=== PATIENT | male | born 1980 | race Caucasian/White ===

== ENCOUNTER 2020-09-24 17:29 | Inpatient (IN) ==
[2020-09-24] MEDS ORDERED: DILAUDID INJ IVP ONE (18:28)
[2020-09-24] MEDS ORDERED: ZOFRAN INJ 4 MG VIAL IVP ONE (18:28)
[2020-09-24] MEDS ORDERED: ZOSYN VIAL 3.375 GRAMS 3.375 G in NS 100 ML IV + SPIKE MINIBAG* 100 ML IV ONE (18:29)
--- NOTE | 2020-09-24 18:32 | DR.ABDMALE ---
HPI Time seen Time Seen by Provider: 09/24/20 18:28 PCP Primary Care Physician: PAULA Complaint Chief Complaint Doctors Comments: 2-3 days LLQ abd pain w fever- pain better w lying still. s/p lap lidia 3 wk ago. Chief Complaint:: PT C/O LLQ PAIN. PT WENT AND SEEN HIS PCP AND WAS SENT TO HAVE A ABD/PELVIX CT SCAN. THE SCAN SHOWED PT HAS A ABD ABCESS AND WAS TOLD TO COME OVER TO THE ED TO BE EVALUATED FOR ADMISSION. DR MADSEN WAS ALSO CALLED AND TOLD PATIENT TO COME TO ED. COVID-19 Coronavirus risk:travel/contact w/high risk person: No Has patient experienced Coronavirus symptoms: No Mode of arrival Mode of Arrival: Ambulatory Timing Onset of Chief Complaint: 09/14/20 PMH PMH Past Medical History: Yes Past Medical History: Depression and Hypertension Past Surgical History: Yes Surgical History: Cholecystectomy and Ortho Surgery Past Surgical History Comment: KNEE SURGERY Family History History of Family Medical Conditions: No Social History Does any household member use tobacco: No Alcohol Use: Occasionally Do you use any recreational Drugs:: No Lives With: Family Lives Where: Home Travel Risk Coronavirus risk:travel/contact w/high risk person: No Has patient experienced Coronavirus symptoms: No Infectious screening In the last 2 months have you had wt loss of >10#?: NO Have you had fever, night sweats or hemotysis?: No Have you traveled outside the country in the last 6 months?: No Isolation: Standard ROS Review of Systems Constitutional: See HPI Eyes: No Symptoms Reported ENTM: No Symptoms Reported Respiratoy: No Symptoms Reported Cardiovascular: No Symptoms Reported Gastrointestinal/Abdominal: See HPI Genitourinary: No Symptoms Reported Neurological: No Symptoms Reported Musculoskeletal: No Symptoms Reported Integumentary: No Symptoms Reported Hematologic/Lymphatic: No Symptoms Reported Endocrine: No Symptoms Reported PE Vital Signs Vital Signs: Temp Pulse Resp BP Pulse Ox 09/24/20 19:01 20 09/24/20 17:42 98.7 F 86 20 135/78 97 09/03/20 10:45 135/91 General General Appearance: Alert and In No Apparent Distress Head Head Exam: Normal Inspection and Normocephalic Eyes Eye exam: Normal Appearance and PERRL ENT ENT Exam: Normal Exam and Normal Oropharynx Respiratory Respiratory Exam: Normal Lung Sounds Bilat; negative Accessory Muscle Use Cardiovascular Cardiovascular Exam: Regular Rate and Normal Heart Sounds Abdominal Exam Abdominal Exam: Normal Inspection, Normal Bowel Sounds, Tenderness, Guarding and Rebound Abdominal Tenderness: LLQ Back Back Exam: Normal Inspection and Full ROM Extremeties Extremities Exam: Normal Inspection and Full ROM Neurologic Neurological Exam: Alert and Oriented X3 Skin Skin Exam: Warm, Dry and Intact ROR Labs Reviewed Laboratory Results Reviewed?: Yes Result Diagrams: 09/24/20 18:23 09/24/20 18:40 Laboratory: WBC 11.2 X10^3/uL (3.6-10.0) H 09/24/20 18:23 RBC 4.80 X10^6/uL (4.7-6.0) 09/24/20 18:23 Hgb 12.5 g/dL (13.5-18.0) L 09/24/20 18:23 Hct 37.4 % (42.0-54.0) L 09/24/20 18:23 MCV 77.9 fL (80.0-100.0) L 09/24/20 18:23 MCH 25.9 pg (27.0-34.0) L 09/24/20 18:23 MCHC 33.3 g/dL (33.0-35.0) 09/24/20 18:23 RDW 13.7 % (11.6-16.5) 09/24/20 18:23 Plt Count 377 X10^3/uL (150.0-450.0) 09/24/20 18:23 MPV 6.5 fL (7.4-11.0) L 09/24/20 18:23 Neut % (Auto) 84.2 % (42.0-75.0) H 09/24/20 18:23 Lymph % (Auto) 3.9 % (21.0-51.0) L 09/24/20 18:23 [place] % (Auto) 9.5 % (0.0-13.0) 09/24/20 18:23 Eos % (Auto) 2.0 % (0.9-2.9) 09/24/20 18:23 Baso % (Auto) 0.4 % (0.2-1.0) 09/24/20 18:23 Neut # (Auto) 9.4 x10^3/uL (2.2-4.8) H 09/24/20 18:23 Lymph # (Auto) 0.4 X10^3/uL (1.3-2.9) L 09/24/20 18:23 [place] # (Auto) 1.1 x10^3/uL (0.3-0.8) H 09/24/20 18:23 Eos # (Auto) 0.2 x10^3/uL (0.0-0.2) 09/24/20 18:23 Baso # (Auto) 0.0 X10^3/uL (0.0-0.1) 09/24/20 18:23 Absolute Nucleated RBC 0.1 /100WBC 09/24/20 18:23 Sodium 140 mmol/L (136-145) 09/24/20 18:40 Corrected Sodium TNP 09/24/20 18:40 Potassium 4.0 mmol/L (3.5-5.1) 09/24/20 18:40 Chloride 101 mmol/L (98-107) 09/24/20 18:40 Carbon Dioxide 30.0 mmol/L (21-32) 09/24/20 18:40 BUN 7 mg/dL (7-18) 09/24/20 18:40 Creatinine 1.00 mg/dL (0.70-1.30) 09/24/20 18:40 Est GFR (MDRD) Af Amer > 60 (>60) 09/24/20 18:40 Est GFR (MDRD) Non-Af > 60 (>60) 09/24/20 18:40 Glucose 93 mg/dL (65-99) 09/24/20 18:40 Lactic Acid 1.0 mmol/L (0.4-2.0) 09/24/20 18:40 Calcium 9.1 mg/dL (8.5-10.1) 09/24/20 18:40 Corrected Calcium 9.8 mg/dL (8.5-10.1) 09/24/20 18:40 Total Bilirubin 0.50 mg/dL (0.2-1.0) 09/24/20 18:40 AST 12 Units/L (15-37) L 09/24/20 18:40 ALT 15 Units/L (12-78) 09/24/20 18:40 Alkaline Phosphatase 129 Units/L (46-116) H 09/24/20 18:40 Total Protein 7.3 g/dL (6.4-8.2) 09/24/20 18:40 Albumin 3.1 g/dL (3.4-5.0) L 09/24/20 18:40 Globulin 4.2 g/dL (2.5-4.5) 09/24/20 18:40 Albumin/Globulin Ratio 0.7 Ratio (1.1-2.1) L 09/24/20 18:40 Lipase 54 Units/L (73-393) L 09/24/20 18:40 XRAY X-ray Results: rad report reviewed from outside facility that shows diverticulitis w abscess LLQ 4.6 cm Opioid Opioid Risk Tool Age (Bong box if 16-45): Yes History of Preadolescent Sexual Abuse: No Total: 1 Total Score Risk Category: Low Risk Copyright: Dave MELTON predicting aberrant behaviors Diagnosis Discharge Problem: Diverticulitis of both large and small intestine with abscess
[2020-09-24] MEDS ORDERED: ZOFRAN INJ 4 MG VIAL ONE (18:54)
[2020-09-24] MEDS ORDERED: ZOSYN VIAL 3.375 GRAMS IV ONE (18:54)
[2020-09-24] MEDS ORDERED: DILAUDID INJ ONE (18:54)
[2020-09-24] MEDS ORDERED: NS 100 ML IV + SPIKE MINIBAG* 100 ML IV ONE (18:54)
[2020-09-24 18:57] LABS: BASOPHILS % (AUTO) 0.4 % (0.2-1.0); EOSINOPHILS # (AUTO) 0.2 x10^3/uL (0.0-0.2); HEMATOCRIT 37.4 % (42.0-54.0); HEMOGLOBIN 12.5 g/dL (13.5-18.0); LYMPHOCYTES # (AUTO) 0.4 X10^3/uL (1.3-2.9); LYMPHOCYTES % (AUTO) 3.9 % (21.0-51.0); MEAN CORPUSCULAR HEMOGLOBIN 25.9 pg (27.0-34.0); MEAN CORPUSCULAR HGB CONC 33.3 g/dL (33.0-35.0); MEAN CORPUSCULAR VOLUME 77.9 fL (80.0-100.0); MEAN PLATELET VOLUME 6.5 fL (7.4-11.0); MONOCYTES # (AUTO) 1.1 x10^3/uL (0.3-0.8); MONOCYTES % (AUTO) 9.5 % (0.0-13.0); NEUTROPHILS # (AUTO) 9.4 x10^3/uL (2.2-4.8); NEUTROPHILS % (AUTO) 84.2 % (42.0-75.0); PLATELET COUNT 377 X10^3/uL (150.0-450.0); RED CELL DISTRIBUTION WIDTH 13.7 % (11.6-16.5); WHITE BLOOD COUNT 11.2 X10^3/uL (3.6-10.0)
[2020-09-24 19:02] LABS: ALANINE AMINOTRANSFERASE 15 Units/L (12-78); ALBUMIN 3.1 g/dL (3.4-5.0); ALKALINE PHOSPHATASE 129 Units/L (46-116); ASPARTATE AMINO TRANSFERASE 12 Units/L (15-37); BLOOD UREA NITROGEN 7 mg/dL (7-18); CALCIUM 9.1 mg/dL (8.5-10.1); CHLORIDE 101 mmol/L (98-107); COR CA(FOR HYPOALB) 9.8 mg/dL (8.5-10.1); LIPASE 54 Units/L (73-393); SODIUM 140 mmol/L (136-145); TOTAL PROTEIN 7.3 g/dL (6.4-8.2); eGFR NON BLACK RACES > 60 (>60)
[2020-09-24] MEDS ORDERED: D5 1/2 NS 1000 ML 1,000 ML IV ONE (20:10)
[2020-09-24] MEDS ORDERED: FLAGYL IV PREMIX 500 MG BAG 500 MG/100 ML BAG IV ONE (20:10)
[2020-09-24] MEDS: FLAGYL IV PREMIX 500 MG BAG 500 MG/100 ML BAG IV SCH (20:17)
[2020-09-24] MEDS: D5 1/2 NS 1000 ML 1,000 ML IV SCH (20:17)
[2020-09-24] MEDS ORDERED: DILAUDID INJ IVP PRN (21:48)
[2020-09-24] MEDS ORDERED: ZOFRAN INJ 4 MG VIAL IVP PRN (21:49)
[2020-09-24 21:55] LABS: BILIRUBIN,URINE NEGATIVE (NEGATIVE); BLOOD/HEMOGLOBIN,URINE NEGATIVE (NEGATIVE); GLUCOSE, URINE NEGATIVE (NEGATIVE); KETONES,URINE NEGATIVE (NEGATIVE); LEUKOCYTE ESTERASE ,URINE NEGATIVE (NEGATIVE); NITRITES,URINE NEGATIVE (NEGATIVE); PROTEIN,URINE 2+ (NEGATIVE); UROBILINOGEN,URINE NORMAL (NORMAL)
[2020-09-24 22:02] LABS: APPEARANCE,URINE CLEAR (CLEAR); BACTERIA,URINE NEGATIVE /HPF (NEGATIVE); COLOR,URINE YELLOW (YELLOW); RBC,URINE NONE SEEN /HPF (0-3); SQUAMOUS EPITHELIAL CELL,UR RARE /HPF (NEGATIVE)
[2020-09-25] MEDS: FLAGYL IV PREMIX 500 MG BAG 500 MG/100 ML BAG IV SCH ×4 (02:08→20:36)
[2020-09-25] MEDS: D5 1/2 NS 1000 ML 1,000 ML IV SCH ×3 (03:46→20:36)
[2020-09-25 05:10] LABS: BASOPHILS % (AUTO) 0.3 % (0.2-1.0); EOSINOPHILS # (AUTO) 0.3 x10^3/uL (0.0-0.2); EOSINOPHILS % (AUTO) 3.2 % (0.9-2.9); HEMATOCRIT 33.7 % (42.0-54.0); HEMOGLOBIN 11.4 g/dL (13.5-18.0); LYMPHOCYTES # (AUTO) 0.4 X10^3/uL (1.3-2.9); LYMPHOCYTES % (AUTO) 4.6 % (21.0-51.0); MEAN CORPUSCULAR HEMOGLOBIN 26.1 pg (27.0-34.0); MEAN CORPUSCULAR HGB CONC 33.8 g/dL (33.0-35.0); MEAN CORPUSCULAR VOLUME 77.2 fL (80.0-100.0); MEAN PLATELET VOLUME 6.7 fL (7.4-11.0); MONOCYTES # (AUTO) 0.8 x10^3/uL (0.3-0.8); MONOCYTES % (AUTO) 8.8 % (0.0-13.0); NEUTROPHILS # (AUTO) 7.1 x10^3/uL (2.2-4.8); NEUTROPHILS % (AUTO) 83.1 % (42.0-75.0); PLATELET COUNT 328 X10^3/uL (150.0-450.0); RED BLOOD COUNT 4.37 X10^6/uL (4.7-6.0); RED CELL DISTRIBUTION WIDTH 13.7 % (11.6-16.5); WHITE BLOOD COUNT 8.6 X10^3/uL (3.6-10.0)
[2020-09-25 05:16] LABS: ALANINE AMINOTRANSFERASE 34 Units/L (12-78); ALBUMIN 2.6 g/dL (3.4-5.0); ALKALINE PHOSPHATASE 224 Units/L (46-116); ASPARTATE AMINO TRANSFERASE 32 Units/L (15-37); BLOOD UREA NITROGEN 4 mg/dL (7-18); CALCIUM 8.6 mg/dL (8.5-10.1); CHLORIDE 103 mmol/L (98-107); COR CA(FOR HYPOALB) 9.7 mg/dL (8.5-10.1); CREATININE 0.92 mg/dL (0.70-1.30); SODIUM 142 mmol/L (136-145); TOTAL PROTEIN 6.2 g/dL (6.4-8.2); eGFR NON BLACK RACES > 60 (>60)
[2020-09-25] MEDS ORDERED: LEXAPRO ONE (09:41)
[2020-09-25] MEDS: LEXAPRO PO SCH (10:02)
[2020-09-25] MEDS: TOPROL XL PO SCH (10:02)
[2020-09-25] MEDS ORDERED: NS 100 ML IV 100 ML ONE (12:41)
--- NOTE | 2020-09-25 13:38 | CT ---
HISTORYFollow-up abscessSTUDYCT abdomen pelvis with contrastTechnique: Axial post-contrast images with coronal and sagittal reformats. Dose reduction procedures were used with mA/kv adjusted for body size.[id number] from [facility] lung bases are clear. The liver, spleen, right adrenal gland and pancreas are normal. 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 The kidneys are unobstructed and without stones or masses. No ureteral calculi are identified. The abdominal aorta is normal. No retroperitoneal lymphadenopathy is identified. There is some mesenteric lymphadenopathy in the left lower quadrant adjacent to a area of marked inflammation within the mesentery. Within this area of inflammation there is a 4.3 x 5.4 x 5.3 cm air/gas and fluid collection consistent with an abscess very slightly larger than on the prior examination. The etiology of this abscess is unclear. It could be a peridiverticular abscess involving the descending colon however very few diverticula are identified in the colon throughout. Alternatively this could be related to the small-bowel possibly contained perforation. It is of interest that in a loop of small bowel adjacent to the abscess there is a cylindrical foreign body which was present on the prior examination and was hyperdense. It measures approximately 13 mm by 5 mm. Whether not this may be related to a small bowel perforation is unclear at this time. Examination of the pelvis demonstrated a small amount of pelvic fluid likely related to the left lower quadrant inflammatory process. No masses or adenopathy are identified. No bladder abnormality is identified. The prostate gland appears enlarged. No lytic or blastic skeletal lesions of significance are identified.IMPRESSIONLeft lower quadrant inflammatory process containing an abscess measuring 4.3 x 5.4 x 5.3 cm which is slightly larger than on the prior examination. The precise etiology of the abscess is unclear. Peridiverticular abscess is possible however there are few if any descending colon diverticula to be present. Alternatively and more likely this may be related to a contained small bowel perforation etiology of which is unclear. Of interest is a solidity foreign body within an adjacent small bowel loop that was present on the prior examination and is unchanged in position on this examination. Whether or not this foreign bodies related to a perforation is unclear at this time7.3 x 6.4 x 9.7 cm fatty tumor of the left adrenal gland likely a myelolipoma or angiomyolipomaElectronically signed by: AKANKSHA CHRISTINA (Sep 25, 2020 13:35:35)
--- NOTE | 2020-09-25 16:17 | DR.PROGNOT ---
Hospital Progress Notes - Progress Note for Day of: Progress Note Date: 09/25/20 - Chief Complaint Chief Complaint: still having moderate Lt side abdominal pain . no nausea or vomiting . WBC is normal now with shift to the Lt . CT reading was changed to possible perforarion and stricture of small bowel rather than. diverticulitis . Pt is afebrile and improving .. - Past Medical Family Social History Past Med/Fam/Surg Hx: No changes since H&P Allergies: Allergies No Known Drug Allergies Allergy (Verified 07/19/20 11:31) - Review Of Systems ROS: No change since H&P - Vital Signs Vital Signs: Temperature 98.4 F Pulse Rate [Right Brachial] 80 Pulse Rate 86 Respiratory Rate 18 Blood Pressure [Right Arm] 123/76 Blood Pressure 135/78 O2 Sat by Pulse Oximetry 96 - Physical Exam Oriented: Normal Eyes: Normal Ear: Normal Throat: Normal Respiratory: Normal Cardiovascular: Normal : Normal GI:Auscultation: Normal GI:Palpation: Normal GI: Tenderness: Normal, LLQ (soft abdomen with LLQ tenderness . no rebound , no rigidity BS+.) Speech Pattern: Clear, Appropriate - Laboratory and Diagnostics Result Diagrams: 09/25/20 04:10 09/25/20 04:10 Labs: Laboratory WBC 8.6 X10^3/uL (3.6-10.0) 09/25/20 04:10 RBC 4.37 X10^6/uL (4.7-6.0) L 09/25/20 04:10 Hgb 11.4 g/dL (13.5-18.0) L 09/25/20 04:10 Hct 33.7 % (42.0-54.0) L 09/25/20 04:10 MCV 77.2 fL (80.0-100.0) L 09/25/20 04:10 MCH 26.1 pg (27.0-34.0) L 09/25/20 04:10 MCHC 33.8 g/dL (33.0-35.0) 09/25/20 04:10 RDW 13.7 % (11.6-16.5) 09/25/20 04:10 Plt Count 328 X10^3/uL (150.0-450.0) 09/25/20 04:10 MPV 6.7 fL (7.4-11.0) L 09/25/20 04:10 Neut % (Auto) 83.1 % (42.0-75.0) H 09/25/20 04:10 Lymph % (Auto) 4.6 % (21.0-51.0) L 09/25/20 04:10 [place] % (Auto) 8.8 % (0.0-13.0) 09/25/20 04:10 Eos % (Auto) 3.2 % (0.9-2.9) H 09/25/20 04:10 Baso % (Auto) 0.3 % (0.2-1.0) 09/25/20 04:10 Neut # (Auto) 7.1 x10^3/uL (2.2-4.8) H 09/25/20 04:10 Lymph # (Auto) 0.4 X10^3/uL (1.3-2.9) L 09/25/20 04:10 [place] # (Auto) 0.8 x10^3/uL (0.3-0.8) 09/25/20 04:10 Eos # (Auto) 0.3 x10^3/uL (0.0-0.2) H 09/25/20 04:10 Baso # (Auto) 0.0 X10^3/uL (0.0-0.1) 09/25/20 04:10 Absolute Nucleated RBC 0.0 /100WBC 09/25/20 04:10 Sodium 142 mmol/L (136-145) 09/25/20 04:10 Corrected Sodium TNP 09/25/20 04:10 Potassium 3.7 mmol/L (3.5-5.1) 09/25/20 04:10 Chloride 103 mmol/L (98-107) 09/25/20 04:10 Carbon Dioxide 30.0 mmol/L (21-32) 09/25/20 04:10 BUN 4 mg/dL (7-18) L 09/25/20 04:10 Creatinine 0.92 mg/dL (0.70-1.30) 09/25/20 04:10 Est GFR (MDRD) Af Amer > 60 (>60) 09/25/20 04:10 Est GFR (MDRD) Non-Af > 60 (>60) 09/25/20 04:10 Glucose 97 mg/dL (65-99) 09/25/20 04:10 Lactic Acid 1.0 mmol/L (0.4-2.0) 09/24/20 18:40 Calcium 8.6 mg/dL (8.5-10.1) 09/25/20 04:10 Corrected Calcium 9.7 mg/dL (8.5-10.1) 09/25/20 04:10 Total Bilirubin 0.50 mg/dL (0.2-1.0) 09/25/20 04:10 AST 32 Units/L (15-37) 09/25/20 04:10 ALT 34 Units/L (12-78) 09/25/20 04:10 Alkaline Phosphatase 224 Units/L (46-116) H 09/25/20 04:10 Total Protein 6.2 g/dL (6.4-8.2) L 09/25/20 04:10 Albumin 2.6 g/dL (3.4-5.0) L 09/25/20 04:10 Globulin 3.6 g/dL (2.5-4.5) 09/25/20 04:10 Albumin/Globulin Ratio 0.7 Ratio (1.1-2.1) L 09/25/20 04:10 Lipase 54 Units/L (73-393) L 09/24/20 18:40 Specimen Type Clean catch urine 09/24/20 21:30 Urine Color Yellow (YELLOW) 09/24/20 21:30 Urine Appearance Clear (CLEAR) 09/24/20 21:30 Urine pH 5.0 (5.0 - 8.0) 09/24/20 21:30 Ur Specific [place] 1.010 (1.000-1.030) 09/24/20 21:30 Urine Protein 2+ (NEGATIVE) 09/24/20 21:30 Urine Glucose (UA) Negative (NEGATIVE) 09/24/20 21:30 Urine Ketones Negative (NEGATIVE) 09/24/20 21: Urine Occult Blood Negative (NEGATIVE) 09/24/20 21: Urine Nitrite Negative (NEGATIVE) 09/24/20 21:30 Urine Bilirubin Negative (NEGATIVE) 09/24/20 21:30 Urine Urobilinogen Normal (NORMAL) 09/24/20 21:30 Ur Leukocyte Esterase Negative (NEGATIVE) 09/24/20 21:30 Urine RBC None seen /HPF (0-3) 09/24/20 21:30 Urine WBC 0-2 /HPF (0-5) 09/24/20 21:30 Ur Squamous Epith Cells Rare /HPF (NEGATIVE) 09/24/20 21:30 Urine Bacteria Negative /HPF (NEGATIVE) 09/24/20 21:30 Ur Culture Indicated? No/not indicated 09/24/20 21:30 SARS CoV-2 RNA Rapid MANGO Negative (NEGATIVE) 09/24/20 20:16 - Assessment and Plan 1: acute diverticulitis vs sealed off perforated small bowel with localized peritonitis .. same treatment plan . keep NPO , IVF and ATB . repeat abdominal CT . - Problem Patient Problems: Patient Problems Diverticulitis of both large and small intestine with abscess (Acute) K57.40
[2020-09-25] MEDS: ZOSYN VIAL 3.375 GRAMS 3.375 G in NS 100 ML IV + SPIKE MINIBAG* 100 ML IV SCH (18:08)
[2020-09-26] MEDS: ZOSYN VIAL 3.375 GRAMS 3.375 G in NS 100 ML IV + SPIKE MINIBAG* 100 ML IV SCH ×4 (00:15→21:45)
[2020-09-26] MEDS: FLAGYL IV PREMIX 500 MG BAG 500 MG/100 ML BAG IV SCH ×4 (02:39→20:49)
[2020-09-26] MEDS: D5 1/2 NS 1000 ML 1,000 ML IV SCH ×3 (03:04→20:25)
--- NOTE | 2020-09-26 08:14 | DR.PROGNOT ---
Hospital Progress Notes - Progress Note for Day of: Progress Note Date: 09/26/20 - Chief Complaint Chief Complaint: still having moderate Lt side abdominal pain . no nausea or vomiting . WBC is normal now with shift to the Lt . CT reading was changed to possible perforarion and stricture of small bowel rather than. diverticulitis . Pt is afebrile and improving .. - Past Medical Family Social History Past Med/Fam/Surg Hx: No changes since H&P Allergies: Allergies No Known Drug Allergies Allergy (Verified 07/19/20 11:31) - Review Of Systems ROS: No change since H&P - Vital Signs Vital Signs: Temperature 97.2 F Pulse Rate [Right Brachial] 62 Pulse Rate 86 Respiratory Rate 18 Blood Pressure [Left Arm] 116/73 Blood Pressure [Right Arm] 106/67 Blood Pressure 135/78 O2 Sat by Pulse Oximetry 98 - Physical Exam Oriented: Normal Eyes: Normal Ear: Normal Throat: Normal Respiratory: Normal Cardiovascular: Normal : Normal GI:Auscultation: Normal GI:Palpation: Normal GI: Tenderness: Normal, LLQ (soft abdomen with LLQ tenderness . no rebound , no rigidity BS+.) Speech Pattern: Clear, Appropriate - Laboratory and Diagnostics Result Diagrams: 09/25/20 04:10 09/25/20 04:10 Labs: Laboratory WBC 8.6 X10^3/uL (3.6-10.0) 09/25/20 04:10 RBC 4.37 X10^6/uL (4.7-6.0) L 09/25/20 04:10 Hgb 11.4 g/dL (13.5-18.0) L 09/25/20 04:10 Hct 33.7 % (42.0-54.0) L 09/25/20 04:10 MCV 77.2 fL (80.0-100.0) L 09/25/20 04:10 MCH 26.1 pg (27.0-34.0) L 09/25/20 04:10 MCHC 33.8 g/dL (33.0-35.0) 09/25/20 04:10 RDW 13.7 % (11.6-16.5) 09/25/20 04:10 Plt Count 328 X10^3/uL (150.0-450.0) 09/25/20 04:10 MPV 6.7 fL (7.4-11.0) L 09/25/20 04:10 Neut % (Auto) 83.1 % (42.0-75.0) H 09/25/20 04:10 Lymph % (Auto) 4.6 % (21.0-51.0) L 09/25/20 04:10 [place] % (Auto) 8.8 % (0.0-13.0) 09/25/20 04:10 Eos % (Auto) 3.2 % (0.9-2.9) H 09/25/20 04:10 Baso % (Auto) 0.3 % (0.2-1.0) 09/25/20 04:10 Neut # (Auto) 7.1 x10^3/uL (2.2-4.8) H 09/25/20 04:10 Lymph # (Auto) 0.4 X10^3/uL (1.3-2.9) L 09/25/20 04:10 [place] # (Auto) 0.8 x10^3/uL (0.3-0.8) 09/25/20 04:10 Eos # (Auto) 0.3 x10^3/uL (0.0-0.2) H 09/25/20 04:10 Baso # (Auto) 0.0 X10^3/uL (0.0-0.1) 09/25/20 04:10 Absolute Nucleated RBC 0.0 /100WBC 09/25/20 04:10 Sodium 142 mmol/L (136-145) 09/25/20 04:10 Corrected Sodium TNP 09/25/20 04:10 Potassium 3.7 mmol/L (3.5-5.1) 09/25/20 04:10 Chloride 103 mmol/L (98-107) 09/25/20 04:10 Carbon Dioxide 30.0 mmol/L (21-32) 09/25/20 04:10 BUN 4 mg/dL (7-18) L 09/25/20 04:10 Creatinine 0.92 mg/dL (0.70-1.30) 09/25/20 04:10 Est GFR (MDRD) Af Amer > 60 (>60) 09/25/20 04:10 Est GFR (MDRD) Non-Af > 60 (>60) 09/25/20 04:10 Glucose 97 mg/dL (65-99) 09/25/20 04:10 Lactic Acid 1.0 mmol/L (0.4-2.0) 09/24/20 18:40 Calcium 8.6 mg/dL (8.5-10.1) 09/25/20 04:10 Corrected Calcium 9.7 mg/dL (8.5-10.1) 09/25/20 04:10 Total Bilirubin 0.50 mg/dL (0.2-1.0) 09/25/20 04:10 AST 32 Units/L (15-37) 09/25/20 04:10 ALT 34 Units/L (12-78) 09/25/20 04:10 Alkaline Phosphatase 224 Units/L (46-116) H 09/25/20 04:10 Total Protein 6.2 g/dL (6.4-8.2) L 09/25/20 04:10 Albumin 2.6 g/dL (3.4-5.0) L 09/25/20 04:10 Globulin 3.6 g/dL (2.5-4.5) 09/25/20 04:10 Albumin/Globulin Ratio 0.7 Ratio (1.1-2.1) L 09/25/20 04:10 Lipase 54 Units/L (73-393) L 09/24/20 18:40 Specimen Type Clean catch urine 09/24/20 21:30 Urine Color Yellow (YELLOW) 09/24/20 21:30 Urine Appearance Clear (CLEAR) 09/24/20 21:30 Urine pH 5.0 (5.0 - 8.0) 09/24/20 21:30 Ur Specific [place] 1.010 (1.000-1.030) 09/24/20 21:30 Urine Protein 2+ (NEGATIVE) 09/24/20 21:30 Urine Glucose (UA) Negative (NEGATIVE) 09/24/20 21: Urine Ketones Negative (NEGATIVE) 09/24/20 21:30 Urine Occult Blood Negative (NEGATIVE) 09/24/20 21: Urine Nitrite Negative (NEGATIVE) 09/24/20 21:30 Urine Bilirubin Negative (NEGATIVE) 09/24/20 21:30 Urine Urobilinogen Normal (NORMAL) 09/24/20 21:30 Ur Leukocyte Esterase Negative (NEGATIVE) 09/24/20 21:30 Urine RBC None seen /HPF (0-3) 09/24/20 21:30 Urine WBC 0-2 /HPF (0-5) 09/24/20 21:30 Ur Squamous Epith Cells Rare /HPF (NEGATIVE) 09/24/20 21:30 Urine Bacteria Negative /HPF (NEGATIVE) 09/24/20 21:30 Ur Culture Indicated? No/not indicated 09/24/20 21:30 SARS CoV-2 RNA Rapid MANGO Negative (NEGATIVE) 09/24/20 20:16 - Assessment and Plan 1: acute diverticulitis vs sealed off perforated small bowel with localized peritonitis .. same treatment plan . keep NPO , IVF and ATB. abdominal Xray today . - Problem Patient Problems: Patient Problems Diverticulitis of both large and small intestine with abscess (Acute) K57.40
[2020-09-26 08:49] LABS: BASOPHILS # (AUTO) 0.1 X10^3/uL (0.0-0.1); BASOPHILS % (AUTO) 0.8 % (0.2-1.0); EOSINOPHILS # (AUTO) 0.3 x10^3/uL (0.0-0.2); EOSINOPHILS % (AUTO) 3.7 % (0.9-2.9); HEMATOCRIT 32.8 % (42.0-54.0); LYMPHOCYTES # (AUTO) 0.4 X10^3/uL (1.3-2.9); LYMPHOCYTES % (AUTO) 5.1 % (21.0-51.0); MEAN CORPUSCULAR HEMOGLOBIN 26.2 pg (27.0-34.0); MEAN CORPUSCULAR HGB CONC 33.6 g/dL (33.0-35.0); MEAN CORPUSCULAR VOLUME 77.8 fL (80.0-100.0); MEAN PLATELET VOLUME 6.5 fL (7.4-11.0); MONOCYTES # (AUTO) 0.5 x10^3/uL (0.3-0.8); MONOCYTES % (AUTO) 7.5 % (0.0-13.0); NEUTROPHILS # (AUTO) 5.8 x10^3/uL (2.2-4.8); NEUTROPHILS % (AUTO) 82.9 % (42.0-75.0); PLATELET COUNT 282 X10^3/uL (150.0-450.0); RED BLOOD COUNT 4.22 X10^6/uL (4.7-6.0); RED CELL DISTRIBUTION WIDTH 13.8 % (11.6-16.5); WHITE BLOOD COUNT 6.9 X10^3/uL (3.6-10.0)
[2020-09-26 09:01] LABS: ALANINE AMINOTRANSFERASE 18 Units/L (12-78); ALBUMIN 2.5 g/dL (3.4-5.0); ALKALINE PHOSPHATASE 160 Units/L (46-116); ASPARTATE AMINO TRANSFERASE 13 Units/L (15-37); BLOOD UREA NITROGEN 2 mg/dL (7-18); CALCIUM 8.6 mg/dL (8.5-10.1); CARBON DIOXIDE 32.4 mmol/L (21-32); CHLORIDE 106 mmol/L (98-107); COR CA(FOR HYPOALB) 9.8 mg/dL (8.5-10.1); CREATININE 0.88 mg/dL (0.70-1.30); SODIUM 145 mmol/L (136-145); TOTAL PROTEIN 5.9 g/dL (6.4-8.2); eGFR NON BLACK RACES > 60 (>60)
[2020-09-26] MEDS ORDERED: LEXAPRO ONE (09:11)
--- NOTE | 2020-09-26 09:23 | RAD ---
HISTORYPERFORATED BOWELSTUDYKUB x-ray abdomen one viewCOMPARISONCT 09/25/2020FINDINGSGI contrast is seen in the colon. No extravasated contrast is seen. Possible localized intraperitoneal air in the left lower quadrant but this could be a bowel loop. Prior cholecystectomy.IMPRESSIONSmall area of possible free intraperitoneal air in the left lower quadrant but this could be a bowel loop.Electronically signed by: Jimmy Verdugo (Sep 26, 2020 09:21:05)
[2020-09-26] MEDS: LEXAPRO PO SCH (09:52)
[2020-09-26] MEDS: TOPROL XL PO SCH (09:52)
[2020-09-26] MEDS ORDERED: MICRO K EXTEN CAP 10 MEQ PO PRN (19:55)
[2020-09-26] MEDS ORDERED: KLOR-CON PO PRN (19:55)
[2020-09-26] MEDS ORDERED: POTASSIUM CHLORIDE LIQ 20 MEQ UDC PO PRN (19:55)
[2020-09-26] MEDS ORDERED: POTASSIUM CHL 40 MEQ/NS 0.45% 500 ML IV PRN (19:55)
[2020-09-26] MEDS ORDERED: POTASSIUM CHL 60 MEQ/NS 0.45% 500 ML IV PRN (19:55)
[2020-09-26] MEDS: K-RIDER 10 MEQ/NS 100 ML 10 MEQ/100 ML BAG IV PRN ×2 (22:04→23:05)
[2020-09-27] MEDS: K-RIDER 10 MEQ/NS 100 ML 10 MEQ/100 ML BAG IV PRN ×2 (00:34→02:01)
[2020-09-27] MEDS: FLAGYL IV PREMIX 500 MG BAG 500 MG/100 ML BAG IV SCH ×4 (03:35→21:13)
[2020-09-27] MEDS: D5 1/2 NS 1000 ML 1,000 ML IV SCH ×4 (03:35→21:13)
[2020-09-27] MEDS: ZOSYN VIAL 3.375 GRAMS 3.375 G in NS 100 ML IV + SPIKE MINIBAG* 100 ML IV SCH ×3 (05:17→21:13)
[2020-09-27] MEDS ORDERED: LEXAPRO ONE (08:36)
[2020-09-27] MEDS: LEXAPRO PO SCH (09:08)
[2020-09-27] MEDS: TOPROL XL PO SCH (09:10)
--- NOTE | 2020-09-27 09:21 | DR.PROGNOT ---
Hospital Progress Notes - Progress Note for Day of: Progress Note Date: 09/27/20 - Chief Complaint Chief Complaint: less abdominal pain , Lt side . no nausea or vomiting . WBC is normal now with shift to the Lt . abdominal Xray showed no obstruction and questionable small amount of free air .. Pt is afebrile and improving .. h/o possible Crohn's disease when was younger ? - Past Medical Family Social History Past Med/Fam/Surg Hx: No changes since H&P Allergies: Allergies No Known Drug Allergies Allergy (Verified 07/19/20 11:31) - Review Of Systems ROS: No change since H&P - Vital Signs Vital Signs: Temperature 97.7 F Pulse Rate [Right Brachial] 68 Pulse Rate 86 Respiratory Rate 18 Blood Pressure [Left Arm] 121/73 Blood Pressure [Right Arm] 106/67 Blood Pressure 135/78 O2 Sat by Pulse Oximetry 96 - Physical Exam Oriented: Normal Eyes: Normal Ear: Normal Throat: Normal Respiratory: Normal Cardiovascular: Normal : Normal GI:Auscultation: Normal GI:Palpation: Normal GI: Tenderness: LLQ (fullness LLQ with soft abdomen and moderate LLQ tenderness . no rebound , no rigidity BS+.) Speech Pattern: Clear, Appropriate - Laboratory and Diagnostics Result Diagrams: 09/26/20 08:25 09/27/20 05:16 Labs: 09/24/20 18:40 Blood Blood Culture - Preliminary 09/24/20 18:23 Blood Blood Culture - Preliminary Laboratory WBC 6.9 X10^3/uL (3.6-10.0) 09/26/20 08:25 RBC 4.22 X10^6/uL (4.7-6.0) L 09/26/20 08:25 Hgb 11.0 g/dL (13.5-18.0) L 09/26/20 08:25 Hct 32.8 % (42.0-54.0) L 09/26/20 08:25 MCV 77.8 fL (80.0-100.0) L 09/26/20 08:25 MCH 26.2 pg (27.0-34.0) L 09/26/20 08:25 MCHC 33.6 g/dL (33.0-35.0) 09/26/20 08:25 RDW 13.8 % (11.6-16.5) 09/26/20 08:25 Plt Count 282 X10^3/uL (150.0-450.0) 09/26/20 08:25 MPV 6.5 fL (7.4-11.0) L 09/26/20 08:25 Neut % (Auto) 82.9 % (42.0-75.0) H 09/26/20 08:25 Lymph % (Auto) 5.1 % (21.0-51.0) L 09/26/20 08:25 [place] % (Auto) 7.5 % (0.0-13.0) 09/26/20 08:25 Eos % (Auto) 3.7 % (0.9-2.9) H 09/26/20 08:25 Baso % (Auto) 0.8 % (0.2-1.0) 09/26/20 08:25 Neut # (Auto) 5.8 x10^3/uL (2.2-4.8) H 09/26/20 08:25 Lymph # (Auto) 0.4 X10^3/uL (1.3-2.9) L 09/26/20 08:25 [place] # (Auto) 0.5 x10^3/uL (0.3-0.8) 09/26/20 08:25 Eos # (Auto) 0.3 x10^3/uL (0.0-0.2) H 09/26/20 08:25 Baso # (Auto) 0.1 X10^3/uL (0.0-0.1) 09/26/20 08:25 Absolute Nucleated RBC 0.0 /100WBC 09/26/20 08:25 Sodium 145 mmol/L (136-145) 09/26/20 08:25 Corrected Sodium TNP 09/26/20 08:25 Potassium 3.5 mmol/L (3.5-5.1) 09/27/20 05:16 Chloride 106 mmol/L (98-107) 09/26/20 08:25 Carbon Dioxide 32.4 mmol/L (21-32) H 09/26/20 08:25 BUN 2 mg/dL (7-18) L 09/26/20 08:25 Creatinine 0.88 mg/dL (0.70-1.30) 09/26/20 08:25 Est GFR (MDRD) Af Amer > 60 (>60) 09/26/20 08:25 Est GFR (MDRD) Non-Af > 60 (>60) 09/26/20 08:25 Glucose 109 mg/dL (65-99) H 09/26/20 08:25 Lactic Acid 1.0 mmol/L (0.4-2.0) 09/24/20 18:40 Calcium 8.6 mg/dL (8.5-10.1) 09/26/20 08:25 Corrected Calcium 9.8 mg/dL (8.5-10.1) 09/26/20 08:25 Magnesium 2.3 mg/dL (1.7-2.9) 09/26/20 20:08 Total Bilirubin 0.40 mg/dL (0.2-1.0) 09/26/20 08:25 AST 13 Units/L (15-37) L 09/26/20 08:25 ALT 18 Units/L (12-78) 09/26/20 08:25 Alkaline Phosphatase 160 Units/L (46-116) H 09/26/20 08:25 Total Protein 5.9 g/dL (6.4-8.2) L 09/26/20 08:25 Albumin 2.5 g/dL (3.4-5.0) L 09/26/20 08:25 Globulin 3.4 g/dL (2.5-4.5) 09/26/20 08:25 Albumin/Globulin Ratio 0.7 Ratio (1.1-2.1) L 09/26/20 08:25 Lipase 54 Units/L (73-393) L 09/24/20 18:40 Specimen Type Clean catch urine 09/24/20 21:30 Urine Color Yellow (YELLOW) 09/24/20 21:30 Urine Appearance Clear (CLEAR) 09/24/20 21:30 Urine pH 5.0 (5.0 - 8.0) 09/24/20 21:30 Ur Specific [place] 1.010 (1.000-1.030) 09/24/20 21:30 Urine Protein 2+ (NEGATIVE) 09/24/20 21:30 Urine Glucose (UA) Negative (NEGATIVE) 09/24/20 21:30 Urine Ketones Negative (NEGATIVE) 09/24/20 21:30 Urine Occult Blood Negative (NEGATIVE) 09/24/20 21:30 Urine Nitrite Negative (NEGATIVE) 09/24/20 21:30 Urine Bilirubin Negative (NEGATIVE) 09/24/20 21:30 Urine Urobilinogen Normal (NORMAL) 09/24/20 21:30 Ur Leukocyte Esterase Negative (NEGATIVE) 09/24/20 21:30 Urine RBC None seen /HPF (0-3) 09/24/20 21:30 Urine WBC 0-2 /HPF (0-5) 09/24/20 21:30 Ur Squamous Epith Cells Rare /HPF (NEGATIVE) 09/24/20 21:30 Urine Bacteria Negative /HPF (NEGATIVE) 09/24/20 21:30 Ur Culture Indicated? No/not indicated 09/24/20 21:30 SARS CoV-2 RNA Rapid MANGO Negative (NEGATIVE) 09/24/20 20:16 - Assessment and Plan 1: acute diverticulitis vs sealed off perforated small bowel with localized peritonitis .. same treatment plan . full liquid , IVF and ATB. abdominal Xray today . future GI endoscopy .. - Problem Patient Problems: Patient Problems Diverticulitis of both large and small intestine with abscess (Acute) K57.40
[2020-09-27] MEDS: K-DUR TAB 20 MEQ PO PRN (21:13)
[2020-09-28] MEDS: D5 1/2 NS 1000 ML 1,000 ML IV SCH ×5 (00:22→20:30)
[2020-09-28] MEDS: FLAGYL IV PREMIX 500 MG BAG 500 MG/100 ML BAG IV SCH ×4 (02:29→20:32)
[2020-09-28] MEDS: ZOSYN VIAL 3.375 GRAMS 3.375 G in NS 100 ML IV + SPIKE MINIBAG* 100 ML IV SCH ×3 (05:30→22:02)
--- NOTE | 2020-09-28 10:26 | CT ---
HISTORYFollow-up abscessSTUDYCT abdomen pelvis without contrastTechnique: Axial noncontrast images with coronal and sagittal reformats. Dose reduction procedures were used with mA/kv adjusted for body size. THIS EXAMINATION IS LIMITED DUE TO THE LACK OF INTRAVENOUS CONTRAST. The examination was performed in this manner at the sole discretion of the ordering caregiver.[id number]/29/2021 and priorFINDINGSThe lung bases are clear. The liver, spleen, right adrenal gland, and pancreas are within normal limits. 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 Patient is status post cholecystectomy. The kidneys are unobstructed and without stones. No ureteral calculi are identified. The abdominal aorta is normal in caliber. No enlarged intraperitoneal or retroperitoneal lymph nodes are present. There are nonenlarged periaortic intraperitoneal lymph nodes present likely reactive. Once again noted in the left lower quadrant adjacent to the descending colon and multiple small bowel loops is an area of inflammation central to which there is some gas and fluid. It measures approximately 5.4 cm by 5 cm by approximately 5 cm which is not a significant change from the prior examination. Again this likely represents an abscess. There is surrounding mesenteric stranding indicative of inflammation. Unchanged and re-demonstrated is an oblong foreign body in a small-bowel loop adjacent to the abscess. The relationship of this intraluminal foreign body to the abscess is unknown. Differential diagnosis of the etiology is unchanged from that described the prior examination. Examination of the pelvis demonstrated no evidence for pelvic masses, pelvic lymphadenopathy or bladder abnormality. There is minimal fluid in the pelvis likely related to the inflammatory process present. Prostate gland is enlarged. No lytic or blastic skeletal lesions are identified.IMPRESSIONNo significant change in the size of the left lower abdominal abscess noted on the prior 2 examinations. The precise etiology remains unclear. Differential diagnosis is unchanged from that described on the prior examination. The previously noted intraluminal foreign body within a small bowel loop adjacent to the abscess is again noted and unchanged in position. Its relation to the abscess is unclear at this timeNo change 7.3 x 6.4 x 9.7 cm fatty tumor of the left adrenal gland likely a myelolipoma or angiomyolipomaEnlarged prostate glandElectronically signed by: AKANKSHA CHRISTINA (Sep 28, 2020 10:24:01)
[2020-09-28] MEDS ORDERED: LEXAPRO ONE (10:42)
[2020-09-28] MEDS: TOPROL XL PO SCH (10:57)
[2020-09-28] MEDS: LEXAPRO PO SCH (10:57)
[2020-09-28] MEDS: LOVENOX INJ 40 MG SYR SC SCH (10:58)
--- NOTE | 2020-09-28 14:37 | DR.PROGNOT ---
Hospital Progress Notes - Progress Note for Day of: Progress Note Date: 09/28/20 - Chief Complaint Chief Complaint: only mild Lt side abdominal pain , . no nausea or vomiting . WBC is normal now with shift to the Lt . abdominal CT showed no changes in abdominal abscess .. no obstruction. CBC normal .. Pt is afebrile and clinically improving .. - Past Medical Family Social History Past Med/Fam/Surg Hx: No changes since H&P Allergies: Allergies No Known Drug Allergies Allergy (Verified 07/19/20 11:31) - Review Of Systems ROS: No change since H&P - Vital Signs Vital Signs: Temperature 98.0 F Pulse Rate [Right Brachial] 75 Pulse Rate 86 Respiratory Rate 18 Blood Pressure [Left Arm] 114/76 Blood Pressure [Right Arm] 106/67 Blood Pressure 135/78 O2 Sat by Pulse Oximetry 97 - Physical Exam Oriented: Normal Eyes: Normal Ear: Normal Throat: Normal Respiratory: Normal Cardiovascular: Normal : Normal GI:Auscultation: Normal GI:Palpation: Normal GI: Tenderness: LLQ (fullness LLQ with soft abdomen and moderate LLQ tenderness . no rebound , no rigidity BS+.) Speech Pattern: Clear, Appropriate - Laboratory and Diagnostics Result Diagrams: 09/26/20 08:25 09/27/20 05:16 Labs: 09/24/20 18:40 Blood Blood Culture - Preliminary 09/24/20 18:23 Blood Blood Culture - Preliminary Laboratory WBC 6.9 X10^3/uL (3.6-10.0) 09/26/20 08:25 RBC 4.22 X10^6/uL (4.7-6.0) L 09/26/20 08:25 Hgb 11.0 g/dL (13.5-18.0) L 09/26/20 08:25 Hct 32.8 % (42.0-54.0) L 09/26/20 08:25 MCV 77.8 fL (80.0-100.0) L 09/26/20 08:25 MCH 26.2 pg (27.0-34.0) L 09/26/20 08:25 MCHC 33.6 g/dL (33.0-35.0) 09/26/20 08:25 RDW 13.8 % (11.6-16.5) 09/26/20 08:25 Plt Count 282 X10^3/uL (150.0-450.0) 09/26/20 08:25 MPV 6.5 fL (7.4-11.0) L 09/26/20 08:25 Neut % (Auto) 82.9 % (42.0-75.0) H 09/26/20 08:25 Lymph % (Auto) 5.1 % (21.0-51.0) L 09/26/20 08:25 [place] % (Auto) 7.5 % (0.0-13.0) 09/26/20 08:25 Eos % (Auto) 3.7 % (0.9-2.9) H 09/26/20 08:25 Baso % (Auto) 0.8 % (0.2-1.0) 09/26/20 08:25 Neut # (Auto) 5.8 x10^3/uL (2.2-4.8) H 09/26/20 08:25 Lymph # (Auto) 0.4 X10^3/uL (1.3-2.9) L 09/26/20 08:25 [place] # (Auto) 0.5 x10^3/uL (0.3-0.8) 09/26/20 08:25 Eos # (Auto) 0.3 x10^3/uL (0.0-0.2) H 09/26/20 08:25 Baso # (Auto) 0.1 X10^3/uL (0.0-0.1) 09/26/20 08:25 Absolute Nucleated RBC 0.0 /100WBC 09/26/20 08:25 Sodium 145 mmol/L (136-145) 09/26/20 08:25 Corrected Sodium TNP 09/26/20 08:25 Potassium 3.5 mmol/L (3.5-5.1) 09/27/20 05:16 Chloride 106 mmol/L (98-107) 09/26/20 08:25 Carbon Dioxide 32.4 mmol/L (21-32) H 09/26/20 08:25 BUN 2 mg/dL (7-18) L 09/26/20 08:25 Creatinine 0.88 mg/dL (0.70-1.30) 09/26/20 08:25 Est GFR (MDRD) Af Amer > 60 (>60) 09/26/20 08:25 Est GFR (MDRD) Non-Af > 60 (>60) 09/26/20 08:25 Glucose 109 mg/dL (65-99) H 09/26/20 08:25 Lactic Acid 1.0 mmol/L (0.4-2.0) 09/24/20 18:40 Calcium 8.6 mg/dL (8.5-10.1) 09/26/20 08:25 Corrected Calcium 9.8 mg/dL (8.5-10.1) 09/26/20 08:25 Magnesium 2.3 mg/dL (1.7-2.9) 09/26/20 20:08 Total Bilirubin 0.40 mg/dL (0.2-1.0) 09/26/20 08:25 AST 13 Units/L (15-37) L 09/26/20 08:25 ALT 18 Units/L (12-78) 09/26/20 08:25 Alkaline Phosphatase 160 Units/L (46-116) H 09/26/20 08:25 Total Protein 5.9 g/dL (6.4-8.2) L 09/26/20 08:25 Albumin 2.5 g/dL (3.4-5.0) L 09/26/20 08:25 Globulin 3.4 g/dL (2.5-4.5) 09/26/20 08:25 Albumin/Globulin Ratio 0.7 Ratio (1.1-2.1) L 09/26/20 08:25 Lipase 54 Units/L (73-393) L 09/24/20 18:40 Specimen Type Clean catch urine 09/24/20 21:30 Urine Color Yellow (YELLOW) 09/24/20 21:30 Urine Appearance Clear (CLEAR) 09/24/20 21:30 Urine pH 5.0 (5.0 - 8.0) 09/24/20 21:30 Ur Specific [place] 1.010 (1.000-1.030) 09/24/20 21:30 Urine Protein 2+ (NEGATIVE) 09/24/20 21:30 Urine Glucose (UA) Negative (NEGATIVE) 09/24/20 21:30 Urine Ketones Negative (NEGATIVE) 09/24/20 21:30 Urine Occult Blood Negative (NEGATIVE) 09/24/20 21:30 Urine Nitrite Negative (NEGATIVE) 09/24/20 21:30 Urine Bilirubin Negative (NEGATIVE) 09/24/20 21:30 Urine Urobilinogen Normal (NORMAL) 09/24/20 21:30 Ur Leukocyte Esterase Negative (NEGATIVE) 09/24/20 21:30 Urine RBC None seen /HPF (0-3) 09/24/20 21:30 Urine WBC 0-2 /HPF (0-5) 09/24/20 21:30 Ur Squamous Epith Cells Rare /HPF (NEGATIVE) 09/24/20 21:30 Urine Bacteria Negative /HPF (NEGATIVE) 09/24/20 21:30 Ur Culture Indicated? No/not indicated 09/24/20 21:30 SARS CoV-2 RNA Rapid MANGO Negative (NEGATIVE) 09/24/20 20:16 - Assessment and Plan 1: acute diverticulitis vs sealed off perforated small bowel with localized peritonitis .. same treatment plan . full liquid , IVF and ATB. abdominal Xray today . future GI endoscopy .. - Problem Patient Problems: Patient Problems Diverticulitis of both large and small intestine with abscess (Acute) K57.40
[2020-09-29] MEDS: FLAGYL IV PREMIX 500 MG BAG 500 MG/100 ML BAG IV SCH ×4 (02:41→21:19)
[2020-09-29] MEDS: D5 1/2 NS 1000 ML 1,000 ML IV SCH ×2 (03:59→05:46)
[2020-09-29 05:00] LABS: BASOPHILS % (AUTO) 0.2 % (0.2-1.0); EOSINOPHILS # (AUTO) 0.2 x10^3/uL (0.0-0.2); EOSINOPHILS % (AUTO) 1.3 % (0.9-2.9); HEMATOCRIT 33.7 % (42.0-54.0); HEMOGLOBIN 11.5 g/dL (13.5-18.0); LYMPHOCYTES # (AUTO) 0.5 X10^3/uL (1.3-2.9); LYMPHOCYTES % (AUTO) 3.8 % (21.0-51.0); MEAN CORPUSCULAR HEMOGLOBIN 26.2 pg (27.0-34.0); MEAN CORPUSCULAR HGB CONC 34.1 g/dL (33.0-35.0); MEAN CORPUSCULAR VOLUME 76.9 fL (80.0-100.0); MEAN PLATELET VOLUME 6.8 fL (7.4-11.0); MONOCYTES % (AUTO) 7.7 % (0.0-13.0); NEUTROPHILS # (AUTO) 11.3 x10^3/uL (2.2-4.8); PLATELET COUNT 283 X10^3/uL (150.0-450.0); RED BLOOD COUNT 4.38 X10^6/uL (4.7-6.0); RED CELL DISTRIBUTION WIDTH 13.5 % (11.6-16.5)
[2020-09-29 05:09] LABS: ALANINE AMINOTRANSFERASE 11 Units/L (12-78); ALBUMIN 2.5 g/dL (3.4-5.0); ALKALINE PHOSPHATASE 98 Units/L (46-116); ASPARTATE AMINO TRANSFERASE 9 Units/L (15-37); BLOOD UREA NITROGEN 1 mg/dL (7-18); CALCIUM 8.5 mg/dL (8.5-10.1); CARBON DIOXIDE 31.7 mmol/L (21-32); CHLORIDE 106 mmol/L (98-107); COR CA(FOR HYPOALB) 9.7 mg/dL (8.5-10.1); CREATININE 0.86 mg/dL (0.70-1.30); SODIUM 142 mmol/L (136-145); TOTAL PROTEIN 5.8 g/dL (6.4-8.2); eGFR NON BLACK RACES > 60 (>60)
[2020-09-29] MEDS: ZOSYN VIAL 3.375 GRAMS 3.375 G in NS 100 ML IV + SPIKE MINIBAG* 100 ML IV SCH ×3 (05:44→21:19)
[2020-09-29] MEDS ORDERED: LEXAPRO ONE (09:52)
[2020-09-29] MEDS: LEXAPRO PO SCH (10:05)
[2020-09-29] MEDS: TOPROL XL PO SCH (10:05)
[2020-09-29] MEDS: LOVENOX INJ 40 MG SYR SC SCH (10:07)
[2020-09-29] MEDS: LR 1000 ML IV 1,000 ML IV SCH ×2 (15:35→18:22)
[2020-09-30] MEDS: FLAGYL IV PREMIX 500 MG BAG 500 MG/100 ML BAG IV SCH ×4 (02:33→20:19)
[2020-09-30 04:42] LABS: BASOPHILS % (AUTO) 0.2 % (0.2-1.0); EOSINOPHILS # (AUTO) 0.1 x10^3/uL (0.0-0.2); EOSINOPHILS % (AUTO) 0.7 % (0.9-2.9); HEMATOCRIT 34.2 % (42.0-54.0); HEMOGLOBIN 11.5 g/dL (13.5-18.0); LYMPHOCYTES # (AUTO) 0.5 X10^3/uL (1.3-2.9); LYMPHOCYTES % (AUTO) 3.2 % (21.0-51.0); MEAN CORPUSCULAR HGB CONC 33.8 g/dL (33.0-35.0); MONOCYTES # (AUTO) 1.1 x10^3/uL (0.3-0.8); MONOCYTES % (AUTO) 7.2 % (0.0-13.0); NEUTROPHILS % (AUTO) 88.7 % (42.0-75.0); PLATELET COUNT 264 X10^3/uL (150.0-450.0); RED BLOOD COUNT 4.44 X10^6/uL (4.7-6.0); WHITE BLOOD COUNT 15.8 X10^3/uL (3.6-10.0)
[2020-09-30 04:55] LABS: ALANINE AMINOTRANSFERASE 9 Units/L (12-78); ALBUMIN 2.4 g/dL (3.4-5.0); ALKALINE PHOSPHATASE 89 Units/L (46-116); ASPARTATE AMINO TRANSFERASE 7 Units/L (15-37); BLOOD UREA NITROGEN 2 mg/dL (7-18); CALCIUM 8.4 mg/dL (8.5-10.1); CARBON DIOXIDE 31.7 mmol/L (21-32); CHLORIDE 104 mmol/L (98-107); COR CA(FOR HYPOALB) 9.7 mg/dL (8.5-10.1); CREATININE 0.85 mg/dL (0.70-1.30); SODIUM 142 mmol/L (136-145); TOTAL PROTEIN 5.7 g/dL (6.4-8.2); eGFR NON BLACK RACES > 60 (>60)
[2020-09-30] MEDS: ZOSYN VIAL 3.375 GRAMS 3.375 G in NS 100 ML IV + SPIKE MINIBAG* 100 ML IV SCH ×3 (05:01→21:11)
[2020-09-30] MEDS: LR 1000 ML IV 1,000 ML IV SCH ×3 (05:03→18:22)
[2020-09-30] MEDS ORDERED: LEXAPRO ONE (08:53)
[2020-09-30] MEDS: LOVENOX INJ 40 MG SYR SC SCH (08:54)
[2020-09-30] MEDS: LEXAPRO PO SCH (08:54)
[2020-09-30] MEDS: TOPROL XL PO SCH (08:55)
[2020-09-30] MEDS: K-DUR TAB 20 MEQ PO PRN (08:55)
[2020-10-01] MEDS: FLAGYL IV PREMIX 500 MG BAG 500 MG/100 ML BAG IV SCH ×4 (02:50→20:30)
[2020-10-01] MEDS: LR 1000 ML IV 1,000 ML IV SCH ×3 (02:54→21:05)
[2020-10-01] MEDS: ZOSYN VIAL 3.375 GRAMS 3.375 G in NS 100 ML IV + SPIKE MINIBAG* 100 ML IV SCH (05:33)
[2020-10-01 05:41] LABS: BASOPHILS % (AUTO) 0.2 % (0.2-1.0); EOSINOPHILS # (AUTO) 0.2 x10^3/uL (0.0-0.2); EOSINOPHILS % (AUTO) 1.3 % (0.9-2.9); HEMATOCRIT 33.3 % (42.0-54.0); HEMOGLOBIN 11.3 g/dL (13.5-18.0); LYMPHOCYTES # (AUTO) 0.4 X10^3/uL (1.3-2.9); MEAN CORPUSCULAR HEMOGLOBIN 26.1 pg (27.0-34.0); MEAN CORPUSCULAR HGB CONC 33.8 g/dL (33.0-35.0); MEAN CORPUSCULAR VOLUME 77.2 fL (80.0-100.0); MEAN PLATELET VOLUME 7.1 fL (7.4-11.0); MONOCYTES # (AUTO) 0.9 x10^3/uL (0.3-0.8); MONOCYTES % (AUTO) 7.9 % (0.0-13.0); NEUTROPHILS # (AUTO) 10.4 x10^3/uL (2.2-4.8); NEUTROPHILS % (AUTO) 87.6 % (42.0-75.0); PLATELET COUNT 276 X10^3/uL (150.0-450.0); RED BLOOD COUNT 4.32 X10^6/uL (4.7-6.0); WHITE BLOOD COUNT 11.9 X10^3/uL (3.6-10.0)
[2020-10-01 05:58] LABS: ALANINE AMINOTRANSFERASE 7 Units/L (12-78); ALBUMIN 2.5 g/dL (3.4-5.0); ALKALINE PHOSPHATASE 84 Units/L (46-116); ASPARTATE AMINO TRANSFERASE 8 Units/L (15-37); BLOOD UREA NITROGEN 3 mg/dL (7-18); CALCIUM 8.4 mg/dL (8.5-10.1); CARBON DIOXIDE 29.3 mmol/L (21-32); CHLORIDE 106 mmol/L (98-107); COR CA(FOR HYPOALB) 9.6 mg/dL (8.5-10.1); CREATININE 0.72 mg/dL (0.70-1.30); SODIUM 143 mmol/L (136-145); TOTAL PROTEIN 5.7 g/dL (6.4-8.2); eGFR NON BLACK RACES > 60 (>60)
[2020-10-01] MEDS ORDERED: LEXAPRO ONE (09:01)
[2020-10-01] MEDS: TOPROL XL PO SCH (09:20)
[2020-10-01] MEDS: LEXAPRO PO SCH (09:20)
[2020-10-01] MEDS: LOVENOX INJ 40 MG SYR SC SCH (09:21)
[2020-10-01] MEDS: ZOSYN VIAL 4.5 GRAMS 4.5 G in NS 100 ML IV + SPIKE MINIBAG* 100 ML IV SCH ×2 (16:00→21:35)
--- NOTE | 2020-10-01 21:17 | DR.PROGNOT ---
Hospital Progress Notes - Progress Note for Day of: Progress Note Date: 10/01/20 - Chief Complaint Chief Complaint: Lt side abdominal pain , . no nausea or vomiting . had small BM , no bleeding . WBC 11.9 .LFT are back to normal . - Past Medical Family Social History Past Med/Fam/Surg Hx: No changes since H&P Allergies: Allergies No Known Drug Allergies Allergy (Verified 07/19/20 11:31) - Review Of Systems ROS: No change since H&P - Vital Signs Vital Signs: Temperature 98.0 F Pulse Rate [Right Brachial] 74 Pulse Rate 86 Respiratory Rate 20 Blood Pressure [Left Arm] 116/66 Blood Pressure [Right Arm] 116/74 Blood Pressure 135/78 O2 Sat by Pulse Oximetry 97 - Physical Exam Oriented: Normal Eyes: Normal Ear: Normal Throat: Normal Respiratory: Normal Cardiovascular: Normal : Normal GI:Auscultation: Normal GI:Palpation: Normal GI: Tenderness: LLQ (fullness LLQ with soft abdomen and moderate LLQ tenderness . no rebound , no rigidity BS+.) Skin: Normal (fullness LLQ with localized tenderness .. BS+) Speech Pattern: Clear, Appropriate - Laboratory and Diagnostics Result Diagrams: 10/01/20 04:24 10/01/20 04:24 Labs: 09/24/20 18:40 Blood Blood Culture - Final 09/24/20 18:23 Blood Blood Culture - Final Laboratory WBC 11.9 X10^3/uL (3.6-10.0) H 10/01/20 04:24 RBC 4.32 X10^6/uL (4.7-6.0) L 10/01/20 04:24 Hgb 11.3 g/dL (13.5-18.0) L 10/01/20 04:24 Hct 33.3 % (42.0-54.0) L 10/01/20 04:24 MCV 77.2 fL (80.0-100.0) L 10/01/20 04:24 MCH 26.1 pg (27.0-34.0) L 10/01/20 04:24 MCHC 33.8 g/dL (33.0-35.0) 10/01/20 04:24 RDW 14.0 % (11.6-16.5) 10/01/20 04:24 Plt Count 276 X10^3/uL (150.0-450.0) 10/01/20 04:24 MPV 7.1 fL (7.4-11.0) L 10/01/20 04:24 Neut % (Auto) 87.6 % (42.0-75.0) H 10/01/20 04:24 Lymph % (Auto) 3.0 % (21.0-51.0) L 10/01/20 04:24 [place] % (Auto) 7.9 % (0.0-13.0) 10/01/20 04:24 Eos % (Auto) 1.3 % (0.9-2.9) 10/01/20 04:24 Baso % (Auto) 0.2 % (0.2-1.0) 10/01/20 04:24 Neut # (Auto) 10.4 x10^3/uL (2.2-4.8) H 10/01/20 04:24 Lymph # (Auto) 0.4 X10^3/uL (1.3-2.9) L 10/01/20 04:24 [place] # (Auto) 0.9 x10^3/uL (0.3-0.8) H 10/01/20 04:24 Eos # (Auto) 0.2 x10^3/uL (0.0-0.2) 10/01/20 04:24 Baso # (Auto) 0.0 X10^3/uL (0.0-0.1) 10/01/20 04:24 Absolute Nucleated RBC 0.0 /100WBC 10/01/20 04:24 Sodium 143 mmol/L (136-145) 10/01/20 04:24 Corrected Sodium TNP 10/01/20 04:24 Potassium 3.5 mmol/L (3.5-5.1) 10/01/20 04:24 Chloride 106 mmol/L (98-107) 10/01/20 04:24 Carbon Dioxide 29.3 mmol/L (21-32) 10/01/20 04:24 BUN 3 mg/dL (7-18) L 10/01/20 04:24 Creatinine 0.72 mg/dL (0.70-1.30) 10/01/20 04:24 Est GFR (MDRD) Af Amer > 60 (>60) 10/01/20 04:24 Est GFR (MDRD) Non-Af > 60 (>60) 10/01/20 04:24 Glucose 99 mg/dL (65-99) 10/01/20 04:24 Lactic Acid 1.0 mmol/L (0.4-2.0) 09/24/20 18:40 Calcium 8.4 mg/dL (8.5-10.1) L 10/01/20 04:24 Corrected Calcium 9.6 mg/dL (8.5-10.1) 10/01/20 04:24 Magnesium 2.3 mg/dL (1.7-2.9) 09/26/20 20:08 Total Bilirubin 0.20 mg/dL (0.2-1.0) 10/01/20 04:24 AST 8 Units/L (15-37) L 10/01/20 04:24 ALT 7 Units/L (12-78) L 10/01/20 04:24 Alkaline Phosphatase 84 Units/L (46-116) 10/01/20 04:24 Total Protein 5.7 g/dL (6.4-8.2) L 10/01/20 04:24 Albumin 2.5 g/dL (3.4-5.0) L 10/01/20 04:24 Globulin 3.2 g/dL (2.5-4.5) 10/01/20 04:24 Albumin/Globulin Ratio 0.8 Ratio (1.1-2.1) L 10/01/20 04:24 Lipase 54 Units/L (73-393) L 09/24/20 18:40 Specimen Type Clean catch urine 09/24/20 21:30 Urine Color Yellow (YELLOW) 09/24/20 21:30 Urine Appearance Clear (CLEAR) 09/24/20 21:30 Urine pH 5.0 (5.0 - 8.0) 09/24/20 21:30 Ur Specific [place] 1.010 (1.000-1.030) 09/24/20 21:30 Urine Protein 2+ (NEGATIVE) 09/24/20 21:30 Urine Glucose (UA) Negative (NEGATIVE) 09/24/20 21:30 Urine Ketones Negative (NEGATIVE) 09/24/20 21:30 Urine Occult Blood Negative (NEGATIVE) 09/24/20 21:30 Urine Nitrite Negative (NEGATIVE) 09/24/20 21:30 Urine Bilirubin Negative (NEGATIVE) 09/24/20 21:30 Urine Urobilinogen Normal (NORMAL) 09/24/20 21:30 Ur Leukocyte Esterase Negative (NEGATIVE) 09/24/20 21:30 Urine RBC None seen /HPF (0-3) 09/24/20 21:30 Urine WBC 0-2 /HPF (0-5) 09/24/20 21:30 Ur Squamous Epith Cells Rare /HPF (NEGATIVE) 09/24/20 21:30 Urine Bacteria Negative /HPF (NEGATIVE) 09/24/20 21:30 Ur Culture Indicated? No/not indicated 09/24/20 21:30 SARS CoV-2 RNA Rapid MANGO Negative (NEGATIVE) 09/24/20 20:16 - Assessment and Plan 1: acute diverticulitis vs sealed off perforated small bowel with localized peritonitis .. same treatment plan . full liquid , IVF and ATB. abdominal Xray today . future GI endoscopy .. - Problem Patient Problems: Patient Problems Diverticulitis of both large and small intestine with abscess (Acute) K57.40
[2020-10-02] MEDS: FLAGYL IV PREMIX 500 MG BAG 500 MG/100 ML BAG IV SCH ×2 (02:15→09:31)
[2020-10-02] MEDS: LR 1000 ML IV 1,000 ML IV SCH ×2 (02:15→10:17)
[2020-10-02] MEDS: ZOSYN VIAL 4.5 GRAMS 4.5 G in NS 100 ML IV + SPIKE MINIBAG* 100 ML IV SCH (05:54)
--- NOTE | 2020-10-02 06:53 | RAD ---
HISTORYDIVERTICULITIS HX HTN. SX [id number]/30/2021FINDINGSEvaluation of the abdomen demonstrates a normal bowel gas pa ttern. There is a moderate amount of fecal material throughout the colon. Surgical clips in the right upper quadrant. No pathological soft tissue mass or calcification can be observed. The bony structu res are grossly intact.IMPRESSIONNo evidence for acute abdominal pathology identified.Electronically signed by: Shane Strong (Oct 02, 2020 06:50:51)
[2020-10-02] MEDS ORDERED: LEXAPRO ONE (08:57)
[2020-10-02] MEDS: LEXAPRO PO SCH (09:30)
[2020-10-02] MEDS: TOPROL XL PO SCH (09:30)
[2020-10-02] MEDS: LOVENOX INJ 40 MG SYR SC SCH (09:31)
[2020-10-02 12:44] VITALS: BP 116/74
== END 2020-10-02 13:50 | disposition home or self-care (01) | DRG 392 ==
LOC: ER 17:42 → MED/SURG 20:38
PROVIDERS: ADMIT Surgery; ATTEND Surgery
DX: K57.40 Diverticulitis of both small and large intestine with perforation and abscess without bleeding; Z20.822 Contact with and (suspected) exposure to COVID-19; F41.8 Other specified anxiety disorders; F32.89 Other specified depressive episodes; I10 Essential (primary) hypertension

== ENCOUNTER 2020-11-01 09:34 | Inpatient (IN) ==
[2020-11-01 15:31] VITALS: BMI 19.2
[2020-11-01 15:48] LABS: BASOPHILS % (AUTO) 0.1 % (0.2-1.0); EOSINOPHILS # (AUTO) 0.1 x10^3/uL (0.0-0.2); EOSINOPHILS % (AUTO) 0.5 % (0.9-2.9); HEMATOCRIT 31.2 % (42.0-54.0); HEMOGLOBIN 10.3 g/dL (13.5-18.0); LYMPHOCYTES # (AUTO) 0.5 X10^3/uL (1.3-2.9); LYMPHOCYTES % (AUTO) 3.2 % (21.0-51.0); MEAN CORPUSCULAR HEMOGLOBIN 25.4 pg (27.0-34.0); MEAN CORPUSCULAR HGB CONC 32.9 g/dL (33.0-35.0); MEAN CORPUSCULAR VOLUME 77.2 fL (80.0-100.0); MEAN PLATELET VOLUME 6.4 fL (7.4-11.0); MONOCYTES % (AUTO) 6.5 % (0.0-13.0); NEUTROPHILS # (AUTO) 13.8 x10^3/uL (2.2-4.8); NEUTROPHILS % (AUTO) 89.7 % (42.0-75.0); PLATELET COUNT 352 X10^3/uL (150.0-450.0); RED BLOOD COUNT 4.04 X10^6/uL (4.7-6.0); WHITE BLOOD COUNT 15.4 X10^3/uL (3.6-10.0)
[2020-11-01 15:59] LABS: BLOOD UREA NITROGEN 10 mg/dL (7-18); CALCIUM 8.7 mg/dL (8.5-10.1); CARBON DIOXIDE 30.6 mmol/L (21-32); CHLORIDE 103 mmol/L (98-107); SODIUM 140 mmol/L (136-145); eGFR NON BLACK RACES > 60 (>60)
[2020-11-01] MEDS: ZOSYN VIAL 3.375 GRAMS 3.375 G in NS 100 ML IV + SPIKE MINIBAG* 100 ML IV SCH (16:25)
[2020-11-01] MEDS: D5 1/2 NS 1000 ML 1,000 ML IV SCH (16:25)
[2020-11-01] MEDS: FLAGYL IV PREMIX 500 MG BAG 500 MG/100 ML BAG IV SCH ×2 (16:25→22:45)
[2020-11-01 21:01] LABS: ALANINE AMINOTRANSFERASE 27 Units/L (12-78); ALBUMIN 2.5 g/dL (3.4-5.0); ALKALINE PHOSPHATASE 161 Units/L (46-116); ASPARTATE AMINO TRANSFERASE 28 Units/L (15-37); COR CA(FOR HYPOALB) 9.9 mg/dL (8.5-10.1)
[2020-11-02] MEDS ORDERED: NORCO 5/325 MG TAB PO ONE ×2 (01:17→19:39)
[2020-11-02] MEDS ORDERED: NORCO 5/325 MG TAB ONE (01:18)
[2020-11-02] MEDS: D5 1/2 NS 1000 ML 1,000 ML IV SCH ×4 (01:28→18:59)
[2020-11-02 01:50] LABS: BILIRUBIN,URINE NEGATIVE (NEGATIVE); BLOOD/HEMOGLOBIN,URINE NEGATIVE (NEGATIVE); GLUCOSE, URINE NEGATIVE (NEGATIVE); KETONES,URINE NEGATIVE (NEGATIVE); LEUKOCYTE ESTERASE ,URINE NEGATIVE (NEGATIVE); NITRITES,URINE NEGATIVE (NEGATIVE); PROTEIN,URINE 1+ (NEGATIVE); UROBILINOGEN,URINE NORMAL (NORMAL)
[2020-11-02 01:58] LABS: APPEARANCE,URINE CLEAR (CLEAR); BACTERIA,URINE NEGATIVE /HPF (NEGATIVE); COLOR,URINE YELLOW (YELLOW); RBC,URINE NONE SEEN /HPF (0-3); SQUAMOUS EPITHELIAL CELL,UR NEGATIVE /HPF (NEGATIVE)
[2020-11-02] MEDS: FLAGYL IV PREMIX 500 MG BAG 500 MG/100 ML BAG IV SCH ×4 (03:11→21:31)
[2020-11-02] MEDS: ZOSYN VIAL 3.375 GRAMS 3.375 G in NS 100 ML IV + SPIKE MINIBAG* 100 ML IV SCH ×4 (05:22→22:00)
[2020-11-02 06:33] LABS: BASOPHILS % (AUTO) 0.4 % (0.2-1.0); EOSINOPHILS # (AUTO) 0.2 x10^3/uL (0.0-0.2); EOSINOPHILS % (AUTO) 2.1 % (0.9-2.9); HEMATOCRIT 28.8 % (42.0-54.0); HEMOGLOBIN 9.4 g/dL (13.5-18.0); LYMPHOCYTES # (AUTO) 0.5 X10^3/uL (1.3-2.9); LYMPHOCYTES % (AUTO) 5.8 % (21.0-51.0); MEAN CORPUSCULAR HEMOGLOBIN 25.3 pg (27.0-34.0); MEAN CORPUSCULAR HGB CONC 32.8 g/dL (33.0-35.0); MEAN CORPUSCULAR VOLUME 77.1 fL (80.0-100.0); MEAN PLATELET VOLUME 6.6 fL (7.4-11.0); MONOCYTES # (AUTO) 0.7 x10^3/uL (0.3-0.8); NEUTROPHILS # (AUTO) 7.7 x10^3/uL (2.2-4.8); NEUTROPHILS % (AUTO) 83.7 % (42.0-75.0); PLATELET COUNT 287 X10^3/uL (150.0-450.0); RED BLOOD COUNT 3.73 X10^6/uL (4.7-6.0); RED CELL DISTRIBUTION WIDTH 14.8 % (11.6-16.5); WHITE BLOOD COUNT 9.2 X10^3/uL (3.6-10.0)
[2020-11-02 06:39] LABS: ALANINE AMINOTRANSFERASE 36 Units/L (12-78); ALBUMIN 2.1 g/dL (3.4-5.0); ALKALINE PHOSPHATASE 175 Units/L (46-116); ASPARTATE AMINO TRANSFERASE 29 Units/L (15-37); BLOOD UREA NITROGEN 7 mg/dL (7-18); CALCIUM 8.4 mg/dL (8.5-10.1); CHLORIDE 107 mmol/L (98-107); COR CA(FOR HYPOALB) 9.9 mg/dL (8.5-10.1); CREATININE 0.76 mg/dL (0.70-1.30); SODIUM 143 mmol/L (136-145); eGFR NON BLACK RACES > 60 (>60)
--- NOTE | 2020-11-02 07:37 | DR.PROGNOT ---
Hospital Progress Notes - Progress Note for Day of: Progress Note Date: 11/02/20 - Chief Complaint Chief Complaint: having abdominal pain LLQ with nausea ,. WBC is down with shift . CT showed LLQ pfligmon with abscess . temp 98.2 - Past Medical Family Social History Past Med/Fam/Surg Hx: No changes since H&P Allergies: Allergies No Known Drug Allergies Allergy (Verified 07/19/20 11:31) - Review Of Systems ROS: No change since H&P - Vital Signs Vital Signs: Temperature 97.5 F Pulse Rate [Left Brachial] 66 Respiratory Rate 18 Blood Pressure [Left Arm] 124/68 Blood Pressure [Right Arm] 116/74 Blood Pressure 118/72 O2 Sat by Pulse Oximetry 98 - Physical Exam Oriented: Normal Eyes: Normal Ear: Normal Nose: Normal Respiratory: Normal Cardiovascular: Normal : Normal GI:Palpation: Normal, Other (fullnes LLQ with localized tenderness ) GI: Tenderness: LLQ (soft abdomen with moderate LLQ tenderness with rebound .. BS hypoactive .) Musculoskeletal: Normal Psychiatric: Depression Speech Pattern: Clear, Appropriate - Laboratory and Diagnostics Result Diagrams: 11/02/20 06:02 11/02/20 06:02 Labs: Laboratory WBC 9.2 X10^3/uL (3.6-10.0) 11/02/20 06:02 RBC 3.73 X10^6/uL (4.7-6.0) L 11/02/20 06:02 Hgb 9.4 g/dL (13.5-18.0) L 11/02/20 06:02 Hct 28.8 % (42.0-54.0) L 11/02/20 06:02 MCV 77.1 fL (80.0-100.0) L 11/02/20 06:02 MCH 25.3 pg (27.0-34.0) L 11/02/20 06:02 MCHC 32.8 g/dL (33.0-35.0) L 11/02/20 06:02 RDW 14.8 % (11.6-16.5) 11/02/20 06:02 Plt Count 287 X10^3/uL (150.0-450.0) 11/02/20 06:02 MPV 6.6 fL (7.4-11.0) L 11/02/20 06:02 Neut % (Auto) 83.7 % (42.0-75.0) H 11/02/20 06:02 Lymph % (Auto) 5.8 % (21.0-51.0) L 11/02/20 06:02 [place] % (Auto) 8.0 % (0.0-13.0) 11/02/20 06:02 Eos % (Auto) 2.1 % (0.9-2.9) 11/02/20 06:02 Baso % (Auto) 0.4 % (0.2-1.0) 11/02/20 06:02 Neut # (Auto) 7.7 x10^3/uL (2.2-4.8) H 11/02/20 06:02 Lymph # (Auto) 0.5 X10^3/uL (1.3-2.9) L 11/02/20 06:02 [place] # (Auto) 0.7 x10^3/uL (0.3-0.8) 11/02/20 06:02 Eos # (Auto) 0.2 x10^3/uL (0.0-0.2) 11/02/20 06:02 Baso # (Auto) 0.0 X10^3/uL (0.0-0.1) 11/02/20 06:02 Absolute Nucleated RBC 0.1 /100WBC 11/02/20 06:02 Sodium 143 mmol/L (136-145) 11/02/20 06:02 Corrected Sodium TNP 11/02/20 06:02 Potassium 3.5 mmol/L (3.5-5.1) 11/02/20 06:02 Chloride 107 mmol/L (98-107) 11/02/20 06:02 Carbon Dioxide 32.0 mmol/L (21-32) 11/02/20 06:02 BUN 7 mg/dL (7-18) 11/02/20 06:02 Creatinine 0.76 mg/dL (0.70-1.30) 11/02/20 06:02 Est GFR (MDRD) Af Amer > 60 (>60) 11/02/20 06:02 Est GFR (MDRD) Non-Af > 60 (>60) 11/02/20 06:02 Glucose 106 mg/dL (65-99) H 11/02/20 06:02 Calcium 8.4 mg/dL (8.5-10.1) L 11/02/20 06:02 Corrected Calcium 9.9 mg/dL (8.5-10.1) 11/02/20 06:02 Total Bilirubin 0.50 mg/dL (0.2-1.0) 11/02/20 06:02 AST 29 Units/L (15-37) 11/02/20 06:02 ALT 36 Units/L (12-78) 11/02/20 06:02 Alkaline Phosphatase 175 Units/L (46-116) H 11/02/20 06:02 Total Protein 6.0 g/dL (6.4-8.2) L 11/02/20 06:02 Albumin 2.1 g/dL (3.4-5.0) L 11/02/20 06:02 Globulin 3.9 g/dL (2.5-4.5) 11/02/20 06:02 Albumin/Globulin Ratio 0.5 Ratio (1.1-2.1) L 11/02/20 06:02 Specimen Type Clean catch urine 11/02/20 01:32 Urine Color Yellow (YELLOW) 11/02/20 01:32 Urine Appearance Clear (CLEAR) 11/02/20 01:32 Urine pH 7.0 (5.0 - 8.0) 11/02/20 01:32 Ur Specific [place] 1.010 (1.000-1.030) 11/02/20 01:32 Urine Protein 1+ (NEGATIVE) 11/02/20 01:32 Urine Glucose (UA) Negative (NEGATIVE) 11/02/20 01:32 Urine Ketones Negative (NEGATIVE) 11/02/20 01:32 Urine Occult Blood Negative (NEGATIVE) 11/02/20 01:32 Urine Nitrite Negative (NEGATIVE) 11/02/20 01:32 Urine Bilirubin Negative (NEGATIVE) 11/02/20 01:32 Urine Urobilinogen Normal (NORMAL) 11/02/20 01:32 Ur Leukocyte Esterase Negative (NEGATIVE) 11/02/20 01:32 Urine RBC None seen /HPF (0-3) 11/02/20 01:32 Urine WBC None seen /HPF (0-5) 11/02/20 01:32 Ur Squamous Epith Cells Negative /HPF (NEGATIVE) 11/02/20 01:32 Urine Bacteria Negative /HPF (NEGATIVE) 11/02/20 01:32 Ur Culture Indicated? No/not indicated 11/02/20 01:32 SARS CoV-2 RNA Rapid MANGO Negative (NEGATIVE) 11/01/20 12:59 - Assessment and Plan 1: LLQ abdominal abscess ,. diverticulitis vs small bowel abscess . IBD . on IV ATB . only liquid diet . hopefully we can avoid surgery .
[2020-11-02] MEDS ORDERED: POTASSIUM CHLORIDE LIQ 20 MEQ UDC PO PRN (08:26)
[2020-11-02] MEDS ORDERED: KLOR-CON PO PRN (08:26)
[2020-11-02] MEDS ORDERED: POTASSIUM CHL 40 MEQ/NS 0.45% 500 ML IV PRN (08:26)
[2020-11-02] MEDS ORDERED: K-RIDER 10 MEQ/NS 100 ML 10 MEQ/100 ML BAG IV PRN (08:26)
[2020-11-02] MEDS ORDERED: MAGNESIUM SULFATE 1 GRAM/100 mL PREMIX 1 GM/100 ML BAG IV PRN (08:26)
[2020-11-02] MEDS ORDERED: POTASSIUM CHL 60 MEQ/NS 0.45% 500 ML IV PRN (08:26)
[2020-11-02] MEDS ORDERED: MICRO K EXTEN CAP 10 MEQ PO PRN (08:26)
[2020-11-02] MEDS: K-DUR TAB 20 MEQ PO PRN (08:59)
[2020-11-02] MEDS: LOVENOX INJ 40 MG SYR SC SCH (09:21)
[2020-11-03] MEDS: D5 1/2 NS 1000 ML 1,000 ML IV SCH ×4 (02:26→15:22)
[2020-11-03] MEDS: FLAGYL IV PREMIX 500 MG BAG 500 MG/100 ML BAG IV SCH ×4 (02:46→21:00)
[2020-11-03] MEDS: ZOSYN VIAL 3.375 GRAMS 3.375 G in NS 100 ML IV + SPIKE MINIBAG* 100 ML IV SCH ×3 (06:15→22:06)
[2020-11-03] MEDS: LOVENOX INJ 40 MG SYR SC SCH (08:37)
[2020-11-03 09:49] LABS: BASOPHILS % (AUTO) 0.7 % (0.2-1.0); EOSINOPHILS # (AUTO) 0.2 x10^3/uL (0.0-0.2); EOSINOPHILS % (AUTO) 3.2 % (0.9-2.9); HEMATOCRIT 31.5 % (42.0-54.0); HEMOGLOBIN 10.5 g/dL (13.5-18.0); LYMPHOCYTES # (AUTO) 0.3 X10^3/uL (1.3-2.9); MEAN CORPUSCULAR HEMOGLOBIN 25.6 pg (27.0-34.0); MEAN CORPUSCULAR HGB CONC 33.4 g/dL (33.0-35.0); MEAN CORPUSCULAR VOLUME 76.6 fL (80.0-100.0); MEAN PLATELET VOLUME 6.4 fL (7.4-11.0); MONOCYTES # (AUTO) 0.5 x10^3/uL (0.3-0.8); MONOCYTES % (AUTO) 7.1 % (0.0-13.0); NEUTROPHILS # (AUTO) 5.9 x10^3/uL (2.2-4.8); PLATELET COUNT 326 X10^3/uL (150.0-450.0); RED BLOOD COUNT 4.11 X10^6/uL (4.7-6.0); RED CELL DISTRIBUTION WIDTH 14.6 % (11.6-16.5)
--- NOTE | 2020-11-03 09:50 | DR.PROGNOT ---
Hospital Progress Notes - Progress Note for Day of: Progress Note Date: 11/03/20 - Chief Complaint Chief Complaint: having crampy abdominal pain LLQ up to 8/10 with nausea ,no vomiting . had normal BM . no bleeding . having some anxiety issues . ( on Lexepro ). WBC is down with Lt shift . CT showed LLQ phligmon with abscesses . temp 98.2. same IV ATB and clear liquid . to start on peripheral TPN . - Past Medical Family Social History Past Med/Fam/Surg Hx: No changes since H&P Allergies: Allergies No Known Drug Allergies Allergy (Verified 07/19/20 11:31) - Review Of Systems ROS: No change since H&P - Vital Signs Vital Signs: Temperature 97.8 F Pulse Rate [Left Brachial] 63 Respiratory Rate 20 Blood Pressure [Left Arm] 118/73 Blood Pressure [Right Arm] 121/78 Blood Pressure 118/72 O2 Sat by Pulse Oximetry 99 - Physical Exam Oriented: Normal Eyes: Normal Ear: Normal Nose: Normal Respiratory: Normal Cardiovascular: Normal : Normal GI:Palpation: Normal, Other (fullnes LLQ with localized tenderness ) GI: Tenderness: LLQ (soft abdomen with moderate LLQ tenderness with rebound .. BS hypoactive .) Musculoskeletal: Normal Psychiatric: Depression Speech Pattern: Clear, Appropriate - Laboratory and Diagnostics Result Diagrams: 11/02/20 06:02 11/02/20 06:02 Labs: Laboratory WBC 9.2 X10^3/uL (3.6-10.0) 11/02/20 06:02 RBC 3.73 X10^6/uL (4.7-6.0) L 11/02/20 06:02 Hgb 9.4 g/dL (13.5-18.0) L 11/02/20 06:02 Hct 28.8 % (42.0-54.0) L 11/02/20 06:02 MCV 77.1 fL (80.0-100.0) L 11/02/20 06:02 MCH 25.3 pg (27.0-34.0) L 11/02/20 06:02 MCHC 32.8 g/dL (33.0-35.0) L 11/02/20 06:02 RDW 14.8 % (11.6-16.5) 11/02/20 06:02 Plt Count 287 X10^3/uL (150.0-450.0) 11/02/20 06:02 MPV 6.6 fL (7.4-11.0) L 11/02/20 06:02 Neut % (Auto) 83.7 % (42.0-75.0) H 11/02/20 06:02 Lymph % (Auto) 5.8 % (21.0-51.0) L 11/02/20 06:02 [place] % (Auto) 8.0 % (0.0-13.0) 11/02/20 06:02 Eos % (Auto) 2.1 % (0.9-2.9) 11/02/20 06:02 Baso % (Auto) 0.4 % (0.2-1.0) 11/02/20 06:02 Neut # (Auto) 7.7 x10^3/uL (2.2-4.8) H 11/02/20 06:02 Lymph # (Auto) 0.5 X10^3/uL (1.3-2.9) L 11/02/20 06:02 [place] # (Auto) 0.7 x10^3/uL (0.3-0.8) 11/02/20 06:02 Eos # (Auto) 0.2 x10^3/uL (0.0-0.2) 11/02/20 06:02 Baso # (Auto) 0.0 X10^3/uL (0.0-0.1) 11/02/20 06:02 Absolute Nucleated RBC 0.1 /100WBC 11/02/20 06:02 ESR 28 MM/HOUR (0-15) H 11/02/20 06:02 Sodium 143 mmol/L (136-145) 11/02/20 06:02 Corrected Sodium TNP 11/02/20 06:02 Potassium 3.5 mmol/L (3.5-5.1) 11/02/20 06:02 Chloride 107 mmol/L (98-107) 11/02/20 06:02 Carbon Dioxide 32.0 mmol/L (21-32) 11/02/20 06:02 BUN 7 mg/dL (7-18) 11/02/20 06:02 Creatinine 0.76 mg/dL (0.70-1.30) 11/02/20 06:02 Est GFR (MDRD) Af Amer > 60 (>60) 11/02/20 06:02 Est GFR (MDRD) Non-Af > 60 (>60) 11/02/20 06:02 Glucose 106 mg/dL (65-99) H 11/02/20 06:02 Calcium 8.4 mg/dL (8.5-10.1) L 11/02/20 06:02 Corrected Calcium 9.9 mg/dL (8.5-10.1) 11/02/20 06:02 Magnesium 2.1 mg/dL (1.7-2.9) 11/02/20 06:02 Total Bilirubin 0.50 mg/dL (0.2-1.0) 11/02/20 06:02 AST 29 Units/L (15-37) 11/02/20 06:02 ALT 36 Units/L (12-78) 11/02/20 06:02 Alkaline Phosphatase 175 Units/L (46-116) H 11/02/20 06:02 Total Protein 6.0 g/dL (6.4-8.2) L 11/02/20 06:02 Albumin 2.1 g/dL (3.4-5.0) L 11/02/20 06:02 Globulin 3.9 g/dL (2.5-4.5) 11/02/20 06:02 Albumin/Globulin Ratio 0.5 Ratio (1.1-2.1) L 11/02/20 06:02 Specimen Type Clean catch urine 11/02/20 01:32 Urine Color Yellow (YELLOW) 11/02/20 01:32 Urine Appearance Clear (CLEAR) 11/02/20 01:32 Urine pH 7.0 (5.0 - 8.0) 11/02/20 01:32 Ur Specific [place] 1.010 (1.000-1.030) 11/02/20 01:32 Urine Protein 1+ (NEGATIVE) 11/02/20 01:32 Urine Glucose (UA) Negative (NEGATIVE) 11/02/20 01:32 Urine Ketones Negative (NEGATIVE) 11/02/20 01:32 Urine Occult Blood Negative (NEGATIVE) 11/02/20 01:32 Urine Nitrite Negative (NEGATIVE) 11/02/20 01:32 Urine Bilirubin Negative (NEGATIVE) 11/02/20 01:32 Urine Urobilinogen Normal (NORMAL) 11/02/20 01:32 Ur Leukocyte Esterase Negative (NEGATIVE) 11/02/20 01:32 Urine RBC None seen /HPF (0-3) 11/02/20 01:32 Urine WBC None seen /HPF (0-5) 11/02/20 01:32 Ur Squamous Epith Cells Negative /HPF (NEGATIVE) 11/02/20 01:32 Urine Bacteria Negative /HPF (NEGATIVE) 11/02/20 01:32 Ur Culture Indicated? No/not indicated 11/02/20 01:32 SARS CoV-2 RNA Rapid MANGO Negative (NEGATIVE) 11/01/20 12:59 - Assessment and Plan 1: LLQ abdominal abscess ,. diverticulitis vs small bowel abscess . IBD . on IVf and TPN . ATB . only liquid diet .
[2020-11-03 09:59] LABS: ALANINE AMINOTRANSFERASE 26 Units/L (12-78); ALBUMIN 2.3 g/dL (3.4-5.0); ALKALINE PHOSPHATASE 161 Units/L (46-116); ASPARTATE AMINO TRANSFERASE 16 Units/L (15-37); BLOOD UREA NITROGEN 2 mg/dL (7-18); CALCIUM 8.4 mg/dL (8.5-10.1); CARBON DIOXIDE 31.3 mmol/L (21-32); CHLORIDE 105 mmol/L (98-107); COR CA(FOR HYPOALB) 9.8 mg/dL (8.5-10.1); CREATININE 0.68 mg/dL (0.70-1.30); SODIUM 142 mmol/L (136-145); TOTAL PROTEIN 6.4 g/dL (6.4-8.2); eGFR NON BLACK RACES > 60 (>60)
[2020-11-03] MEDS ORDERED: PHARMACY CONSULT - TPN XX SCH (10:00)
[2020-11-03] MEDS ORDERED: LEXAPRO ONE (10:04)
[2020-11-03] MEDS: LEXAPRO PO SCH (10:07)
[2020-11-03] MEDS: CLINIMIX 4.25 %/10 % 1,000 ML with MVI INJ (ADULT) 10 ML IV SCH ×2 (13:16)
[2020-11-03] MEDS ORDERED: DEXTROSE 10% 1,000 ML IV PRN (16:27)
[2020-11-04] MEDS: FLAGYL IV PREMIX 500 MG BAG 500 MG/100 ML BAG IV SCH ×4 (03:11→21:15)
[2020-11-04] MEDS: D5 1/2 NS 1000 ML 1,000 ML IV SCH ×4 (03:40→16:24)
[2020-11-04] MEDS: ZOSYN VIAL 3.375 GRAMS 3.375 G in NS 100 ML IV + SPIKE MINIBAG* 100 ML IV SCH ×3 (05:13→22:30)
[2020-11-04 06:25] LABS: BASOPHILS % (AUTO) 0.6 % (0.2-1.0); EOSINOPHILS # (AUTO) 0.3 x10^3/uL (0.0-0.2); EOSINOPHILS % (AUTO) 3.1 % (0.9-2.9); HEMATOCRIT 31.3 % (42.0-54.0); HEMOGLOBIN 10.6 g/dL (13.5-18.0); LYMPHOCYTES # (AUTO) 0.3 X10^3/uL (1.3-2.9); LYMPHOCYTES % (AUTO) 3.2 % (21.0-51.0); MEAN CORPUSCULAR HEMOGLOBIN 25.8 pg (27.0-34.0); MEAN CORPUSCULAR HGB CONC 33.9 g/dL (33.0-35.0); MEAN CORPUSCULAR VOLUME 76.1 fL (80.0-100.0); MEAN PLATELET VOLUME 6.4 fL (7.4-11.0); MONOCYTES # (AUTO) 0.6 x10^3/uL (0.3-0.8); MONOCYTES % (AUTO) 7.4 % (0.0-13.0); NEUTROPHILS % (AUTO) 85.7 % (42.0-75.0); PLATELET COUNT 342 X10^3/uL (150.0-450.0); RED BLOOD COUNT 4.12 X10^6/uL (4.7-6.0); RED CELL DISTRIBUTION WIDTH 14.5 % (11.6-16.5); WHITE BLOOD COUNT 8.2 X10^3/uL (3.6-10.0)
[2020-11-04 06:31] LABS: PREALBUMIN 11.5 mg/dL (18-35.7)
[2020-11-04 06:34] LABS: ALANINE AMINOTRANSFERASE 21 Units/L (12-78); ALBUMIN 2.4 g/dL (3.4-5.0); ALKALINE PHOSPHATASE 142 Units/L (46-116); ASPARTATE AMINO TRANSFERASE 11 Units/L (15-37); BLOOD UREA NITROGEN 2 mg/dL (7-18); CALCIUM 8.5 mg/dL (8.5-10.1); CARBON DIOXIDE 30.2 mmol/L (21-32); CHLORIDE 107 mmol/L (98-107); COR CA(FOR HYPOALB) 9.8 mg/dL (8.5-10.1); COR NA(FOR HYPERGLY) 145 mmol/L (136-145); CREATININE 0.72 mg/dL (0.70-1.30); MAGNESIUM 1.9 mg/dL (1.7-2.9); PHOSPHORUS 3.6 mg/dL (2.6-4.7); SODIUM 145 mmol/L (136-145); TOTAL PROTEIN 6.4 g/dL (6.4-8.2); TRIGLYCERIDES 57 mg/dL (0-150); eGFR NON BLACK RACES > 60 (>60)
[2020-11-04] MEDS ORDERED: LEXAPRO ONE (08:14)
[2020-11-04] MEDS: LEXAPRO PO SCH (08:28)
[2020-11-04] MEDS: LOVENOX INJ 40 MG SYR SC SCH (08:32)
[2020-11-04] MEDS: CLINIMIX 4.25 %/10 % 1,000 ML with MVI INJ (ADULT) 10 ML IV SCH ×4 (12:45→16:24)
[2020-11-04] MEDS: K-DUR TAB 20 MEQ PO PRN (15:01)
--- NOTE | 2020-11-04 16:10 | DR.PROGNOT ---
Hospital Progress Notes - Progress Note for Day of: Progress Note Date: 11/04/20 - Chief Complaint Chief Complaint: abdominal pain is less today . mild nausea ,no vomiting . poor appetite . having loose , small BM . no bleeding . having some anxiety issues . ( on Lexepro ). WBC is down with Lt shift . lab work is back to normal. temp 98.2. same IV ATB, TPN and clear liquid . for abdominal? pelvic m CT in am - Past Medical Family Social History Past Med/Fam/Surg Hx: No changes since H&P Allergies: Allergies No Known Drug Allergies Allergy (Verified 07/19/20 11:31) - Review Of Systems ROS: No change since H&P - Vital Signs Vital Signs: Temperature 98.6 F Pulse Rate [Left Brachial] 64 Respiratory Rate 18 Blood Pressure [Left Arm] 129/62 Blood Pressure [Right Arm] 114/68 Blood Pressure 118/72 O2 Sat by Pulse Oximetry 98 - Physical Exam Oriented: Normal Eyes: Normal Ear: Normal Nose: Normal Respiratory: Normal Cardiovascular: Normal : Normal GI:Palpation: Normal, Other (palpable LLQ tender mass with localized tenderness ) GI: Tenderness: LLQ (soft abdomen with moderate LLQ tenderness with rebound .. BS hypoactive .) Musculoskeletal: Normal Psychiatric: Depression Speech Pattern: Clear, Appropriate - Laboratory and Diagnostics Result Diagrams: 11/04/20 05:59 11/04/20 14:35 Labs: Laboratory WBC 8.2 X10^3/uL (3.6-10.0) 11/04/20 05:59 RBC 4.12 X10^6/uL (4.7-6.0) L 11/04/20 05:59 Hgb 10.6 g/dL (13.5-18.0) L 11/04/20 05:59 Hct 31.3 % (42.0-54.0) L 11/04/20 05:59 MCV 76.1 fL (80.0-100.0) L 11/04/20 05:59 MCH 25.8 pg (27.0-34.0) L 11/04/20 05:59 MCHC 33.9 g/dL (33.0-35.0) 11/04/20 05:59 RDW 14.5 % (11.6-16.5) 11/04/20 05:59 Plt Count 342 X10^3/uL (150.0-450.0) 11/04/20 05:59 MPV 6.4 fL (7.4-11.0) L 11/04/20 05:59 Neut % (Auto) 85.7 % (42.0-75.0) H 11/04/20 05:59 Lymph % (Auto) 3.2 % (21.0-51.0) L 11/04/20 05:59 [place] % (Auto) 7.4 % (0.0-13.0) 11/04/20 05:59 Eos % (Auto) 3.1 % (0.9-2.9) H 11/04/20 05:59 Baso % (Auto) 0.6 % (0.2-1.0) 11/04/20 05:59 Neut # (Auto) 7.0 x10^3/uL (2.2-4.8) H 11/04/20 05:59 Lymph # (Auto) 0.3 X10^3/uL (1.3-2.9) L 11/04/20 05:59 [place] # (Auto) 0.6 x10^3/uL (0.3-0.8) 11/04/20 05:59 Eos # (Auto) 0.3 x10^3/uL (0.0-0.2) H 11/04/20 05:59 Baso # (Auto) 0.0 X10^3/uL (0.0-0.1) 11/04/20 05:59 Absolute Nucleated RBC 0.0 /100WBC 11/04/20 05:59 ESR 28 MM/HOUR (0-15) H 11/02/20 06:02 Sodium 145 mmol/L (136-145) 11/04/20 05:59 Corrected Sodium 145 mmol/L (136-145) 11/04/20 05:59 Potassium 3.3 mmol/L (3.5-5.1) L 11/04/20 14:35 Chloride 107 mmol/L (98-107) 11/04/20 05:59 Carbon Dioxide 30.2 mmol/L (21-32) 11/04/20 05:59 BUN 2 mg/dL (7-18) L 11/04/20 05:59 Creatinine 0.72 mg/dL (0.70-1.30) 11/04/20 05:59 Est GFR (MDRD) Af Amer > 60 (>60) 11/04/20 05:59 Est GFR (MDRD) Non-Af > 60 (>60) 11/04/20 05:59 Glucose 112 mg/dL (65-99) H 11/04/20 05:59 POC Glucose (mg/dL) 103 mg/dL (65-99) H 11/04/20 08:35 Calcium 8.5 mg/dL (8.5-10.1) 11/04/20 05:59 Corrected Calcium 9.8 mg/dL (8.5-10.1) 11/04/20 05:59 Phosphorus 3.6 mg/dL (2.6-4.7) 11/04/20 05:59 Magnesium 1.9 mg/dL (1.7-2.9) 11/04/20 05:59 Total Bilirubin 0.30 mg/dL (0.2-1.0) 11/04/20 05:59 AST 11 Units/L (15-37) L 11/04/20 05:59 ALT 21 Units/L (12-78) 11/04/20 05:59 Alkaline Phosphatase 142 Units/L (46-116) H 11/04/20 05:59 Total Protein 6.4 g/dL (6.4-8.2) 11/04/20 05:59 Albumin 2.4 g/dL (3.4-5.0) L 11/04/20 05:59 Globulin 4.0 g/dL (2.5-4.5) 11/04/20 05:59 Albumin/Globulin Ratio 0.6 Ratio (1.1-2.1) L 11/04/20 05:59 Prealbumin 11.5 mg/dL (18-35.7) L 11/04/20 05:59 Triglycerides 57 mg/dL (0-150) 11/04/20 05:59 Specimen Type Clean catch urine 11/02/20 01:32 Urine Color Yellow (YELLOW) 11/02/20 01:32 Urine Appearance Clear (CLEAR) 11/02/20 01:32 Urine pH 7.0 (5.0 - 8.0) 11/02/20 01:32 Ur Specific [place] 1.010 (1.000-1.030) 11/02/20 01:32 Urine Protein 1+ (NEGATIVE) 11/02/20 01:32 Urine Glucose (UA) Negative (NEGATIVE) 11/02/20 01:32 Urine Ketones Negative (NEGATIVE) 11/02/20 01:32 Urine Occult Blood Negative (NEGATIVE) 11/02/20 01:32 Urine Nitrite Negative (NEGATIVE) 11/02/20 01:32 Urine Bilirubin Negative (NEGATIVE) 11/02/20 01:32 Urine Urobilinogen Normal (NORMAL) 11/02/20 01:32 Ur Leukocyte Esterase Negative (NEGATIVE) 11/02/20 01:32 Urine RBC None seen /HPF (0-3) 11/02/20 01:32 Urine WBC None seen /HPF (0-5) 11/02/20 01:32 Ur Squamous Epith Cells Negative /HPF (NEGATIVE) 11/02/20 01:32 Urine Bacteria Negative /HPF (NEGATIVE) 11/02/20 01:32 Ur Culture Indicated? No/not indicated 11/02/20 01:32 SARS CoV-2 RNA Rapid MANGO Negative (NEGATIVE) 11/01/20 12:59 - Assessment and Plan 1: LLQ abdominal abscess ,. diverticulitis vs small bowel abscess . IBD . on IVf and TPN . ATB . only liquid diet . repeat abdomial/pelvic CT in am
[2020-11-04 18:16] LABS: CRYPTOSPORIDIUM PARVUM ANTIGEN NEGATIVE (NEGATIVE); GIARDIA LAMBLIA ANTIGEN NEGATIVE (NEGATIVE)
[2020-11-05] MEDS: FLAGYL IV PREMIX 500 MG BAG 500 MG/100 ML BAG IV SCH ×4 (04:15→21:33)
[2020-11-05 06:27] LABS: PREALBUMIN 12.2 mg/dL (18-35.7)
[2020-11-05 06:36] LABS: ALANINE AMINOTRANSFERASE 15 Units/L (12-78); ALBUMIN 2.3 g/dL (3.4-5.0); ALKALINE PHOSPHATASE 123 Units/L (46-116); ASPARTATE AMINO TRANSFERASE 10 Units/L (15-37); BLOOD UREA NITROGEN 2 mg/dL (7-18); CALCIUM 8.3 mg/dL (8.5-10.1); CARBON DIOXIDE 30.9 mmol/L (21-32); CHLORIDE 107 mmol/L (98-107); COR CA(FOR HYPOALB) 9.7 mg/dL (8.5-10.1); COR NA(FOR HYPERGLY) 146 mmol/L (136-145); CREATININE 0.69 mg/dL (0.70-1.30); MAGNESIUM 1.9 mg/dL (1.7-2.9); PHOSPHORUS 2.6 mg/dL (2.6-4.7); SODIUM 145 mmol/L (136-145); TOTAL PROTEIN 6.3 g/dL (6.4-8.2); TRIGLYCERIDES 70 mg/dL (0-150); eGFR NON BLACK RACES > 60 (>60)
[2020-11-05] MEDS: ZOSYN VIAL 3.375 GRAMS 3.375 G in NS 100 ML IV + SPIKE MINIBAG* 100 ML IV SCH ×3 (06:38→22:40)
[2020-11-05] MEDS: D5 1/2 NS 1000 ML 1,000 ML IV SCH ×3 (07:29→14:07)
[2020-11-05] MEDS: LOVENOX INJ 40 MG SYR SC SCH (08:42)
[2020-11-05] MEDS: LEXAPRO PO SCH ×2 (08:45→11:25)
[2020-11-05] MEDS: CLINIMIX 4.25 %/10 % 1,000 ML with MVI INJ (ADULT) 10 ML, POTASSIUM CHLORIDE INJ 20 MEQ... IV SCH ×6 (09:00→22:51)
[2020-11-05] MEDS ORDERED: CLINIMIX 4.25 %/10 % 1,000 ML with MVI INJ (ADULT) 10 ML IV SCH ×2 (09:00)
[2020-11-05] MEDS ORDERED: NS 100 ML IV 100 ML ONE (09:34)
[2020-11-05] MEDS ORDERED: LEXAPRO ONE (11:10)
--- NOTE | 2020-11-05 11:33 | CT ---
HISTORYABDOMINAL ABSCESS, LLQ PAINSTUDYABDOMEN/PELVIS WITH [id number] axial images of the abdomen and pelvis were obtained from the lung bases to the pubic symphysis after the administration of IV contrast. Dose reduction techniques including Automated Exposure Control (AEC) and adjustment of mA and kV were utilized.FINDINGS[The lung bases demonstrate mild subsegmental atelectasis within the right middle lobe. No focal hepatic lesion. Liver morphology is normal. Previous cholecystectomy. Bile ducts are normal caliber. The spleen, pancreas and right adrenal gland are normal. No change in very large left adrenal gland myelolipoma. Aside for tiny cyst within both kidneys the kidneys are unremarkable.Urinary bladder is normal. Prostate gland is normal. The rectum is normal. Mild bowel wall thickening of the sigmoid colon otherwise the colon is normal. The appendix is normal. Small area of peripheral no enhancing fluid collection within the right lower quadrant measuring 2.5 x 2.1 x 2.0 cm on axial image 54. There is an additional, curvilinear area of gas, fluid and oral contrast with peripheral enhancement measuring 2.3 x 1.4 x 2.7 cm just cranial to the above described fluid collection. There is persistent marked inflammatory change within multiple loops of adjacent small bowel. There is enlargement of the mesenteric lymph nodes within the central mesentery and left lower quadrant. There is no evidence of small bowel obstruction. Review of bone windows demonstrates no acute osseous abnormality.IMPRESSIONNear-complete resolution of peripherally enhancing abscess within the left abdomen measuring approximately 2.5 x 2.1 x 2.0 cm and an adjacent additional small curvilinear abscess which measures 2.3 x 1.4 x 2.7 cm approximately. There is persistent severe bowel wall thickening and surrounding inflammatory change involving multiple adjacent loops of left lower quadrant small bowel. Additionally there are persistent enlarged central and left lower quadrant mesenteric lymph nodes. While findings are consistent with previous perforation arising from the small bowel given the persistent bowel wall thickening an underlying malignancy and/or lymphoma of the small bowel should be excluded.Mild thickening of the sigmoid colon is likely reactive to the above described inflammatory process.No change in large left adrenal gland myelolipoma.Additional incidental, nonacuteElectronically signed by: ELE GRIFFIN (Nov 05, 2020 11:30:23)
--- NOTE | 2020-11-05 15:05 | DR.PROGNOT ---
Hospital Progress Notes - Progress Note for Day of: Progress Note Date: 11/05/20 - Chief Complaint Chief Complaint: less abdominal pain . still having loose BM . C Diff is negative . abdominal CT shows resolution of the abscesses LLQ with thick small bowel orozco and adenopathy . lab work is back to normal. temp 98.2. same IV ATB, TPN and for laparotomy in am . - Past Medical Family Social History Past Med/Fam/Surg Hx: No changes since H&P Allergies: Allergies No Known Drug Allergies Allergy (Verified 07/19/20 11:31) - Review Of Systems ROS: No change since H&P - Vital Signs Vital Signs: Temperature 97.6 F Pulse Rate [Left Brachial] 73 Respiratory Rate 20 Blood Pressure [Left Arm] 121/78 Blood Pressure [Right Arm] 115/66 Blood Pressure 118/72 O2 Sat by Pulse Oximetry 99 - Physical Exam Oriented: Normal Eyes: Normal Ear: Normal Nose: Normal Respiratory: Normal Cardiovascular: Normal : Normal GI:Palpation: Normal, Other (palpable LLQ tender mass with localized tenderness ) GI: Tenderness: LLQ (soft abdomen with moderate LLQ tenderness with rebound .. BS hypoactive .) Musculoskeletal: Normal Psychiatric: Depression Speech Pattern: Clear, Appropriate - Laboratory and Diagnostics Result Diagrams: 11/04/20 05:59 11/05/20 05:15 Labs: 11/04/20 17:19 Stool Stool Culture - Preliminary 11/04/20 17:19 Stool - Final Laboratory WBC 8.2 X10^3/uL (3.6-10.0) 11/04/20 05:59 RBC 4.12 X10^6/uL (4.7-6.0) L 11/04/20 05:59 Hgb 10.6 g/dL (13.5-18.0) L 11/04/20 05:59 Hct 31.3 % (42.0-54.0) L 11/04/20 05:59 MCV 76.1 fL (80.0-100.0) L 11/04/20 05:59 MCH 25.8 pg (27.0-34.0) L 11/04/20 05:59 MCHC 33.9 g/dL (33.0-35.0) 11/04/20 05:59 RDW 14.5 % (11.6-16.5) 11/04/20 05:59 Plt Count 342 X10^3/uL (150.0-450.0) 11/04/20 05:59 MPV 6.4 fL (7.4-11.0) L 11/04/20 05:59 Neut % (Auto) 85.7 % (42.0-75.0) H 11/04/20 05:59 Lymph % (Auto) 3.2 % (21.0-51.0) L 11/04/20 05:59 [place] % (Auto) 7.4 % (0.0-13.0) 11/04/20 05:59 Eos % (Auto) 3.1 % (0.9-2.9) H 11/04/20 05:59 Baso % (Auto) 0.6 % (0.2-1.0) 11/04/20 05:59 Neut # (Auto) 7.0 x10^3/uL (2.2-4.8) H 11/04/20 05:59 Lymph # (Auto) 0.3 X10^3/uL (1.3-2.9) L 11/04/20 05:59 [place] # (Auto) 0.6 x10^3/uL (0.3-0.8) 11/04/20 05:59 Eos # (Auto) 0.3 x10^3/uL (0.0-0.2) H 11/04/20 05:59 Baso # (Auto) 0.0 X10^3/uL (0.0-0.1) 11/04/20 05:59 Absolute Nucleated RBC 0.0 /100WBC 11/04/20 05:59 ESR 28 MM/HOUR (0-15) H 11/02/20 06:02 Sodium 145 mmol/L (136-145) 11/05/20 05:15 Corrected Sodium 146 mmol/L (136-145) H 11/05/20 05:15 Potassium 3.2 mmol/L (3.5-5.1) L 11/05/20 05:15 Chloride 107 mmol/L (98-107) 11/05/20 05:15 Carbon Dioxide 30.9 mmol/L (21-32) 11/05/20 05:15 BUN 2 mg/dL (7-18) L 11/05/20 05:15 Creatinine 0.69 mg/dL (0.70-1.30) L 11/05/20 05:15 Est GFR (MDRD) Af Amer > 60 (>60) 11/05/20 05:15 Est GFR (MDRD) Non-Af > 60 (>60) 11/05/20 05:15 Glucose 139 mg/dL (65-99) H 11/05/20 05:15 POC Glucose (mg/dL) 113 mg/dL (65-99) H 11/05/20 07:17 Calcium 8.3 mg/dL (8.5-10.1) L 11/05/20 05:15 Corrected Calcium 9.7 mg/dL (8.5-10.1) 11/05/20 05:15 Phosphorus 2.6 mg/dL (2.6-4.7) 11/05/20 05:15 Magnesium 1.9 mg/dL (1.7-2.9) 11/05/20 05:15 Total Bilirubin 0.20 mg/dL (0.2-1.0) 11/05/20 05:15 AST 10 Units/L (15-37) L 11/05/20 05:15 ALT 15 Units/L (12-78) 11/05/20 05:15 Alkaline Phosphatase 123 Units/L (46-116) H 11/05/20 05:15 Total Protein 6.3 g/dL (6.4-8.2) L 11/05/20 05:15 Albumin 2.3 g/dL (3.4-5.0) L 11/05/20 05:15 Globulin 4.0 g/dL (2.5-4.5) 11/05/20 05:15 Albumin/Globulin Ratio 0.6 Ratio (1.1-2.1) L 11/05/20 05:15 Prealbumin 12.2 mg/dL (18-35.7) L 11/05/20 05:15 Triglycerides 70 mg/dL (0-150) 11/05/20 05:15 Specimen Type Clean catch urine 11/02/20 01:32 Urine Color Yellow (YELLOW) 11/02/20 01:32 Urine Appearance Clear (CLEAR) 11/02/20 01:32 Urine pH 7.0 (5.0 - 8.0) 11/02/20 01:32 Ur Specific [place] 1.010 (1.000-1.030) 11/02/20 01:32 Urine Protein 1+ (NEGATIVE) 11/02/20 01:32 Urine Glucose (UA) Negative (NEGATIVE) 11/02/20 01:32 Urine Ketones Negative (NEGATIVE) 11/02/20 01:32 Urine Occult Blood Negative (NEGATIVE) 11/02/20 01:32 Urine Nitrite Negative (NEGATIVE) 11/02/20 01:32 Urine Bilirubin Negative (NEGATIVE) 11/02/20 01:32 Urine Urobilinogen Normal (NORMAL) 11/02/20 01:32 Ur Leukocyte Esterase Negative (NEGATIVE) 11/02/20 01:32 Urine RBC None seen /HPF (0-3) 11/02/20 01:32 Urine WBC None seen /HPF (0-5) 11/02/20 01:32 Ur Squamous Epith Cells Negative /HPF (NEGATIVE) 11/02/20 01:32 Urine Bacteria Negative /HPF (NEGATIVE) 11/02/20 01:32 Ur Culture Indicated? No/not indicated 11/02/20 01:32 Stool Description 40g liq/mucoid brown 11/04/20 17:19 Stool Description 40g liq/mucoid brown 11/04/20 17:19 Stl Occult Blood (IFOB) Positive (NEGATIVE) A 11/04/20 17:19 Stool for White Cells Positive (NEGATIVE) A 11/04/20 17:19 Stl C. diff Tox B Gene Negative (NEGATIVE) 11/04/20 17:19 Stl C. diff 027-NAP1-BI Presumptive negative (NEGATIVE) 11/04/20 17:19 Cryptosporid parvum Ag Negative (NEGATIVE) 11/04/20 17:19 Giardia lamblia Ag Negative (NEGATIVE) 11/04/20 17:19 SARS CoV-2 RNA Rapid MANGO Negative (NEGATIVE) 11/01/20 12:59 - Assessment and Plan 1: LLQ abdominal abscess ,. diverticulitis vs small bowel abscess, lymphoma . IBD . on IVf and TPN . ATB . laparotomy possible bowel resection .
[2020-11-05] MEDS ORDERED: CITROMA PO ONE (15:10)
[2020-11-06 06:42] LABS: ALANINE AMINOTRANSFERASE 11 Units/L (12-78); ALBUMIN 2.4 g/dL (3.4-5.0); ALKALINE PHOSPHATASE 115 Units/L (46-116); ASPARTATE AMINO TRANSFERASE 11 Units/L (15-37); BLOOD UREA NITROGEN 3 mg/dL (7-18); CALCIUM 8.4 mg/dL (8.5-10.1); CARBON DIOXIDE 29.7 mmol/L (21-32); CHLORIDE 109 mmol/L (98-107); COR CA(FOR HYPOALB) 9.7 mg/dL (8.5-10.1); COR NA(FOR HYPERGLY) 144 mmol/L (136-145); CREATININE 0.63 mg/dL (0.70-1.30); MAGNESIUM 2.2 mg/dL (1.7-2.9); PHOSPHORUS 2.7 mg/dL (2.6-4.7); SODIUM 144 mmol/L (136-145); TOTAL PROTEIN 6.4 g/dL (6.4-8.2); TRIGLYCERIDES 83 mg/dL (0-150); eGFR NON BLACK RACES > 60 (>60)
[2020-11-06] MEDS ORDERED: LR 1000 ML IV 1,000 ML IV ONE ×2 (07:16→08:48)
[2020-11-06] MEDS ORDERED: DECADRON INJ ONE (07:21)
[2020-11-06] MEDS ORDERED: DILAUDID INJ ONE ×2 (07:22→11:00)
[2020-11-06] MEDS ORDERED: OFIRMEV IV 1000 MG VIAL 1,000 MG/100 ML VIAL IV ONE (07:22)
[2020-11-06] MEDS ORDERED: FENTANYL VIAL INJ 100 mcg ONE (07:22)
[2020-11-06] MEDS ORDERED: PEPCID 20 MG IV PREMIX* 20 MG/50 ML BAG IV ONE (07:23)
[2020-11-06] MEDS ORDERED: LACRI-LUBE S.O.P. ONE (07:41)
[2020-11-06] MEDS ORDERED: VERSED ONE (07:41)
[2020-11-06] MEDS ORDERED: DIPRIVAN VIAL ONE (07:41)
[2020-11-06] MEDS ORDERED: TORADOL 30 MG VIAL ONE (07:41)
[2020-11-06] MEDS ORDERED: EPHEDRINE SULFATE INJ ONE (07:41)
[2020-11-06] MEDS ORDERED: ZOFRAN INJ 4 MG VIAL ONE ×2 (07:41→10:52)
[2020-11-06] MEDS ORDERED: ULTANE GAS IN ONE (07:41)
[2020-11-06] MEDS ORDERED: NEO-SYNEPHRINE INJ ONE (07:41)
[2020-11-06] MEDS ORDERED: KETALAR ONE (07:41)
[2020-11-06] MEDS ORDERED: XYLOCAINE 2 % (PLAIN) ONE (07:41)
[2020-11-06] MEDS ORDERED: ZEMURON 50 MG VIAL ONE (07:41)
[2020-11-06] MEDS ORDERED: BRIDION ONE (07:41)
[2020-11-06] MEDS ORDERED: POLYMYXIN B SULFATE ONE ×2 (08:04→09:53)
[2020-11-06] MEDS ORDERED: BENADRYL INJ 50 MG VIAL IVP PRN (10:40)
[2020-11-06] MEDS ORDERED: PHENERGAN INJ 25 MG IM PRN (10:40)
[2020-11-06] MEDS ORDERED: BARHEMSYS INJ IVP PRN (10:40)
[2020-11-06] MEDS ORDERED: BARHEMSYS INJ ONE (10:58)
[2020-11-06] MEDS: DILAUDID INJ IVP PRN ×5 (11:01→20:30)
[2020-11-06] MEDS ORDERED: PHENERGAN INJ 25 MG IM ONE (11:07)
[2020-11-06] MEDS: LEXAPRO PO SCH (11:26)
[2020-11-06] MEDS: FLAGYL IV PREMIX 500 MG BAG 500 MG/100 ML BAG IV SCH ×4 (11:26→20:35)
[2020-11-06] MEDS: LOVENOX INJ 40 MG SYR SC SCH (12:52)
[2020-11-06] MEDS: ZOSYN VIAL 3.375 GRAMS 3.375 G in NS 100 ML IV + SPIKE MINIBAG* 100 ML IV SCH ×3 (13:36→22:36)
[2020-11-06] MEDS: CLINIMIX 4.25 %/10 % 1,000 ML with MVI INJ (ADULT) 10 ML, POTASSIUM CHLORIDE INJ 20 MEQ... IV SCH ×3 (13:37)
[2020-11-06] MEDS ORDERED: PHARMACY CONSULT - TPN XX SCH (14:00)
[2020-11-06] MEDS: D5 1/2 NS 1000 ML 1,000 ML IV SCH ×3 (15:50→17:31)
[2020-11-06] MEDS: HumuLIN R SUBCUT PRN (16:08)
--- NOTE | 2020-11-06 16:58 | RAD ---
HISTORYPICC LINE PLACEMENTSTUDYCHEST, 1 VIEWCOMPARISONNone availableFINDINGSThe trachea is midline. The cardiac silhouette is unremarkable . The lungs are clear without focal infiltrate or effusion. The bony thorax is unremarkable.[Left-sided PICC line has its tip terminating within the lower SVC. Nasogastric tube courses below the level of the diaphragm.IMPRESSIONNo acute cardiopulmonary disease.Left-sided PICC line terminates within the lower SVC.Electronically signed by: ELE GRIFFIN (Nov 06, 2020 16:55:43)
--- NOTE | 2020-11-06 17:15 | DR.UPDATE ---
H&P Update History and Physical Update: History and Physical reviewed and patient examined. Changes noted: NO Yes with the following:will place picc for tpn H&P Reviewed: Yes Patient was examined?: Yes Procedures (ALL) - Central Line Placement PCM.CLCO: written consent Time out performed: Yes Patient placed pm monitor/pulse ox: Yes prep: mask, gown, gloves, other Centrial line prep: chlorhexidine scrub, sterile drapes applied Local anesthsia used: lidocane 1% Ultrasound used for placement: Yes (left basilic id'd vi u/s, and cannulation visualized) Central line lumen ininserted: double (5.5fr arrow picc. 6cm exposed of 50cm untrimmed cath) Post procedure: good blood return, all ports aspirated, flushed,capped, sterile dressing applied Post procedure xray: tip oc catheter in good position (distal SVC per cxr report), no pneumothorax seen Patient tolerated procedure: Yes Complications: none
[2020-11-06] MEDS: ZOFRAN INJ 4 MG VIAL IVP PRN (22:35)
[2020-11-07] MEDS: HumuLIN R SUBCUT PRN (01:15)
[2020-11-07] MEDS: CLINIMIX 4.25 %/10 % 1,000 ML with MVI INJ (ADULT) 10 ML, POTASSIUM CHLORIDE INJ 20 MEQ... IV SCH ×3 (01:30)
[2020-11-07] MEDS: DILAUDID INJ IVP PRN ×5 (03:30→20:15)
[2020-11-07] MEDS: FLAGYL IV PREMIX 500 MG BAG 500 MG/100 ML BAG IV SCH ×4 (03:36→20:34)
[2020-11-07] MEDS: D5 1/2 NS 1000 ML 1,000 ML IV SCH ×2 (03:37→06:44)
[2020-11-07] MEDS: ZOSYN VIAL 3.375 GRAMS 3.375 G in NS 100 ML IV + SPIKE MINIBAG* 100 ML IV SCH ×3 (05:44→22:30)
[2020-11-07 06:46] LABS: BLOOD UREA NITROGEN 8 mg/dL (7-18); CALCIUM 8.2 mg/dL (8.5-10.1); CHLORIDE 106 mmol/L (98-107); COR NA(FOR HYPERGLY) 144 mmol/L (136-145); CREATININE 0.62 mg/dL (0.70-1.30); SODIUM 142 mmol/L (136-145); eGFR NON BLACK RACES > 60 (>60)
[2020-11-07] MEDS: ZOFRAN INJ 4 MG VIAL IVP PRN (08:05)
[2020-11-07] MEDS ORDERED: LEXAPRO ONE (08:28)
[2020-11-07] MEDS: LEXAPRO PO SCH (08:37)
[2020-11-07] MEDS: LOVENOX INJ 40 MG SYR SC SCH (08:38)
[2020-11-07] MEDS: PROTONIX INJ 40 MG VIAL IVP SCH (08:39)
[2020-11-07 09:34] LABS: ANTI-NUCLEAR ANTIBODY TEST None Detected (None Detected)
--- NOTE | 2020-11-07 10:22 | DR.PROGNOT ---
Hospital Progress Notes - Progress Note for Day of: Progress Note Date: 11/07/20 - Chief Complaint Chief Complaint: post op day1 . c/o incisional pain. was nauseated last night . no vomiting .. minimal NGT drainage . normal CBC . clear lung and soft abdomen with hypoactive BS . - Past Medical Family Social History Past Med/Fam/Surg Hx: No changes since H&P Allergies: Allergies No Known Drug Allergies Allergy (Verified 07/19/20 11:31) - Review Of Systems ROS: No change since H&P - Vital Signs Vital Signs: Temperature 97.5 F Pulse Rate [Left Brachial] 76 Pulse Rate 109 Respiratory Rate 18 Blood Pressure [Left Arm] 156/88 Blood Pressure [Right Arm] 115/66 Blood Pressure 148/88 O2 Sat by Pulse Oximetry 100 - Physical Exam Oriented: Normal Eyes: Normal Ear: Normal Nose: Normal Respiratory: Normal Cardiovascular: Normal : Normal GI:Palpation: Normal, Other (palpable LLQ tender mass with localized tenderness ) GI: Tenderness: Diffuse (soft , with diffuse tenderness . BS hypoactive .) Musculoskeletal: Normal Psychiatric: Depression Mood Description: Calm Speech Pattern: Clear, Appropriate - Laboratory and Diagnostics Result Diagrams: 11/04/20 05:59 11/07/20 06:00 Labs: 11/06/20 08:20 Abdomen Wound Gram Stain - Final 11/06/20 08:20 Abdomen Wound Culture - Preliminary 11/04/20 17:19 Stool Stool Culture - Final 11/04/20 17:19 Stool - Final Laboratory WBC 8.2 X10^3/uL (3.6-10.0) 11/04/20 05:59 RBC 4.12 X10^6/uL (4.7-6.0) L 11/04/20 05:59 Hgb 10.6 g/dL (13.5-18.0) L 11/04/20 05:59 Hct 31.3 % (42.0-54.0) L 11/04/20 05:59 MCV 76.1 fL (80.0-100.0) L 11/04/20 05:59 MCH 25.8 pg (27.0-34.0) L 11/04/20 05:59 MCHC 33.9 g/dL (33.0-35.0) 11/04/20 05:59 RDW 14.5 % (11.6-16.5) 11/04/20 05:59 Plt Count 342 X10^3/uL (150.0-450.0) 11/04/20 05:59 MPV 6.4 fL (7.4-11.0) L 11/04/20 05:59 Neut % (Auto) 85.7 % (42.0-75.0) H 11/04/20 05:59 Lymph % (Auto) 3.2 % (21.0-51.0) L 11/04/20 05:59 [place] % (Auto) 7.4 % (0.0-13.0) 11/04/20 05:59 Eos % (Auto) 3.1 % (0.9-2.9) H 11/04/20 05:59 Baso % (Auto) 0.6 % (0.2-1.0) 11/04/20 05:59 Neut # (Auto) 7.0 x10^3/uL (2.2-4.8) H 11/04/20 05:59 Lymph # (Auto) 0.3 X10^3/uL (1.3-2.9) L 11/04/20 05:59 [place] # (Auto) 0.6 x10^3/uL (0.3-0.8) 11/04/20 05:59 Eos # (Auto) 0.3 x10^3/uL (0.0-0.2) H 11/04/20 05:59 Baso # (Auto) 0.0 X10^3/uL (0.0-0.1) 11/04/20 05:59 Absolute Nucleated RBC 0.0 /100WBC 11/04/20 05:59 ESR 28 MM/HOUR (0-15) H 11/02/20 06:02 Sodium 142 mmol/L (136-145) 11/07/20 06:00 Corrected Sodium 144 mmol/L (136-145) 11/07/20 06:00 Potassium 4.0 mmol/L (3.5-5.1) 11/07/20 06:00 Chloride 106 mmol/L (98-107) 11/07/20 06:00 Carbon Dioxide 32.0 mmol/L (21-32) 11/07/20 06:00 BUN 8 mg/dL (7-18) 11/07/20 06:00 Creatinine 0.62 mg/dL (0.70-1.30) L 11/07/20 06:00 Est GFR (MDRD) Af Amer > 60 (>60) 11/07/20 06:00 Est GFR (MDRD) Non-Af > 60 (>60) 11/07/20 06:00 Glucose 168 mg/dL (65-99) H 11/07/20 06:00 POC Glucose (mg/dL) 202 mg/dL (65-99) H 11/07/20 01:01 Calcium 8.2 mg/dL (8.5-10.1) L 11/07/20 06:00 Corrected Calcium 9.7 mg/dL (8.5-10.1) 11/06/20 05:37 Phosphorus 2.7 mg/dL (2.6-4.7) 11/06/20 05:37 Magnesium 2.2 mg/dL (1.7-2.9) 11/06/20 05:37 Total Bilirubin 0.20 mg/dL (0.2-1.0) 11/06/20 05:37 AST 11 Units/L (15-37) L 11/06/20 05:37 ALT 11 Units/L (12-78) L 11/06/20 05:37 Alkaline Phosphatase 115 Units/L (46-116) 11/06/20 05:37 Total Protein 6.4 g/dL (6.4-8.2) 11/06/20 05:37 Albumin 2.4 g/dL (3.4-5.0) L 11/06/20 05:37 Globulin 4.0 g/dL (2.5-4.5) 11/06/20 05:37 Albumin/Globulin Ratio 0.6 Ratio (1.1-2.1) L 11/06/20 05:37 Prealbumin 12.2 mg/dL (18-35.7) L 11/05/20 05:15 Triglycerides 83 mg/dL (0-150) 11/06/20 05:37 Carcinoembryonic Ag 0.6 ng/mL (0.0-3.0) 11/01/20 15:32 Specimen Type Clean catch urine 11/02/20 01:32 Urine Color Yellow (YELLOW) 11/02/20 01:32 Urine Appearance Clear (CLEAR) 11/02/20 01:32 Urine pH 7.0 (5.0 - 8.0) 11/02/20 01:32 Ur Specific [place] 1.010 (1.000-1.030) 11/02/20 01:32 Urine Protein 1+ (NEGATIVE) 11/02/20 01:32 Urine Glucose (UA) Negative (NEGATIVE) 11/02/20 01:32 Urine Ketones Negative (NEGATIVE) 11/02/20 01:32 Urine Occult Blood Negative (NEGATIVE) 11/02/20 01:32 Urine Nitrite Negative (NEGATIVE) 11/02/20 01:32 Urine Bilirubin Negative (NEGATIVE) 11/02/20 01:32 Urine Urobilinogen Normal (NORMAL) 11/02/20 01:32 Ur Leukocyte Esterase Negative (NEGATIVE) 11/02/20 01:32 Urine RBC None seen /HPF (0-3) 11/02/20 01:32 Urine WBC None seen /HPF (0-5) 11/02/20 01:32 Ur Squamous Epith Cells Negative /HPF (NEGATIVE) 11/02/20 01:32 Urine Bacteria Negative /HPF (NEGATIVE) 11/02/20 01:32 Ur Culture Indicated? No/not indicated 11/02/20 01:32 Stool Description 40g liq/mucoid brown 11/04/20 17:19 Stool Description 40g liq/mucoid brown 11/04/20 17:19 Stl Occult Blood (IFOB) Positive (NEGATIVE) A 11/04/20 17:19 Stool for White Cells Positive (NEGATIVE) A 11/04/20 17:19 Stl C. diff Tox B Gene Negative (NEGATIVE) 11/04/20 17:19 Stl C. diff [id number] Presumptive negative (NEGATIVE) 11/04/20 17:19 BRIDGET Screen None detected (None Detected) 11/02/20 06:02 BRIDGET Titer TNP 11/02/20 06:02 BRIDGET Pattern TNP 11/02/20 06:02 Cryptosporid parvum Ag Negative (NEGATIVE) 11/04/20 17:19 Giardia lamblia Ag Negative (NEGATIVE) 11/04/20 17:19 SARS CoV-2 RNA Rapid MANGO Negative (NEGATIVE) 11/01/20 12:59 Tissue Pathology To follow 11/06/20 09:52 - Assessment and Plan 1: s/p laparotomy . small bowel resection along with abdominal abscess . appendectomy . same post op care .. full TPN . same IV ATB . will add steroids . d/c NGT . on water and ice ..
[2020-11-07] MEDS: MVI IV SCH ×8 (11:40→21:10)
[2020-11-07] MEDS: CLINIMIX IV SCH ×8 (11:40→21:10)
[2020-11-07] MEDS: [UNRECOGNIZED DRUG - OTHER] IV SCH ×8 (11:40→21:10)
[2020-11-07] MEDS ORDERED: PHARMACY CONSULT - TPN XX SCH (12:00)
[2020-11-07] MEDS: SOLU-Medrol 40 MG VIAL IVP SCH ×2 (14:42→21:05)
[2020-11-08] MEDS: HumuLIN R SUBCUT PRN (01:07)
[2020-11-08] MEDS: DILAUDID INJ IVP PRN ×3 (01:50→13:35)
[2020-11-08] MEDS: FLAGYL IV PREMIX 500 MG BAG 500 MG/100 ML BAG IV SCH ×4 (02:46→20:29)
[2020-11-08] MEDS: [UNRECOGNIZED DRUG - OTHER] IV SCH ×16 (05:00→22:10)
[2020-11-08] MEDS: MVI IV SCH ×16 (05:00→22:10)
[2020-11-08] MEDS: CLINIMIX IV SCH ×16 (05:00→22:10)
[2020-11-08] MEDS: SOLU-Medrol 40 MG VIAL IVP SCH ×3 (05:49→22:00)
[2020-11-08] MEDS: ZOSYN VIAL 3.375 GRAMS 3.375 G in NS 100 ML IV + SPIKE MINIBAG* 100 ML IV SCH ×3 (05:49→22:00)
[2020-11-08 06:55] LABS: BLOOD UREA NITROGEN 10 mg/dL (7-18); CALCIUM 8.3 mg/dL (8.5-10.1); CARBON DIOXIDE 32.3 mmol/L (21-32); CHLORIDE 106 mmol/L (98-107); COR NA(FOR HYPERGLY) 144 mmol/L (136-145); CREATININE 0.53 mg/dL (0.70-1.30); SODIUM 142 mmol/L (136-145); eGFR NON BLACK RACES > 60 (>60)
[2020-11-08] MEDS ORDERED: LEXAPRO ONE (07:25)
[2020-11-08] MEDS: LEXAPRO PO SCH (08:17)
[2020-11-08] MEDS: LOVENOX INJ 40 MG SYR SC SCH (08:17)
[2020-11-08] MEDS: PROTONIX INJ 40 MG VIAL IVP SCH (09:23)
--- NOTE | 2020-11-08 10:11 | DR.PROGNOT ---
Hospital Progress Notes - Progress Note for Day of: Progress Note Date: 11/08/20 - Chief Complaint Chief Complaint: post op day 2. less incisional pain. no nausea or vomiting .. normal CBC . clear lung and soft abdomen with hypoactive BS . - Past Medical Family Social History Past Med/Fam/Surg Hx: No changes since H&P Allergies: Allergies No Known Drug Allergies Allergy (Verified 07/19/20 11:31) - Review Of Systems ROS: No change since H&P - Vital Signs Vital Signs: Temperature 97.8 F Pulse Rate [Left Brachial] 82 Pulse Rate 109 Respiratory Rate 18 Blood Pressure [Left Arm] 144/97 Blood Pressure [Right Arm] 115/66 Blood Pressure 148/88 O2 Sat by Pulse Oximetry 97 - Physical Exam Oriented: Normal Eyes: Normal Ear: Normal Nose: Normal Respiratory: Normal Cardiovascular: Normal : Normal GI:Palpation: Normal, Other (palpable LLQ tender mass with localized tenderness ) GI: Tenderness: Diffuse (soft , with diffuse tenderness . BS hypoactive .) Musculoskeletal: Normal Psychiatric: Depression Mood Description: Calm Speech Pattern: Clear, Appropriate - Laboratory and Diagnostics Result Diagrams: 11/04/20 05:59 11/08/20 05:50 Labs: 11/06/20 08:20 Abdomen Wound Gram Stain - Final 11/06/20 08:20 Abdomen Wound Culture - Preliminary 11/04/20 17:19 Stool Stool Culture - Final 11/04/20 17:19 Stool - Final Laboratory WBC 8.2 X10^3/uL (3.6-10.0) 11/04/20 05:59 RBC 4.12 X10^6/uL (4.7-6.0) L 11/04/20 05:59 Hgb 10.6 g/dL (13.5-18.0) L 11/04/20 05:59 Hct 31.3 % (42.0-54.0) L 11/04/20 05:59 MCV 76.1 fL (80.0-100.0) L 11/04/20 05:59 MCH 25.8 pg (27.0-34.0) L 11/04/20 05:59 MCHC 33.9 g/dL (33.0-35.0) 11/04/20 05:59 RDW 14.5 % (11.6-16.5) 11/04/20 05:59 Plt Count 342 X10^3/uL (150.0-450.0) 11/04/20 05:59 MPV 6.4 fL (7.4-11.0) L 11/04/20 05:59 Neut % (Auto) 85.7 % (42.0-75.0) H 11/04/20 05:59 Lymph % (Auto) 3.2 % (21.0-51.0) L 11/04/20 05:59 [place] % (Auto) 7.4 % (0.0-13.0) 11/04/20 05:59 Eos % (Auto) 3.1 % (0.9-2.9) H 11/04/20 05:59 Baso % (Auto) 0.6 % (0.2-1.0) 11/04/20 05:59 Neut # (Auto) 7.0 x10^3/uL (2.2-4.8) H 11/04/20 05:59 Lymph # (Auto) 0.3 X10^3/uL (1.3-2.9) L 11/04/20 05:59 [place] # (Auto) 0.6 x10^3/uL (0.3-0.8) 11/04/20 05:59 Eos # (Auto) 0.3 x10^3/uL (0.0-0.2) H 11/04/20 05:59 Baso # (Auto) 0.0 X10^3/uL (0.0-0.1) 11/04/20 05:59 Absolute Nucleated RBC 0.0 /100WBC 11/04/20 05:59 ESR 28 MM/HOUR (0-15) H 11/02/20 06:02 Sodium 142 mmol/L (136-145) 11/08/20 05:50 Corrected Sodium 144 mmol/L (136-145) 11/08/20 05:50 Potassium 4.2 mmol/L (3.5-5.1) 11/08/20 05:50 Chloride 106 mmol/L (98-107) 11/08/20 05:50 Carbon Dioxide 32.3 mmol/L (21-32) H 11/08/20 05:50 BUN 10 mg/dL (7-18) 11/08/20 05:50 Creatinine 0.53 mg/dL (0.70-1.30) L 11/08/20 05:50 Est GFR (MDRD) Af Amer > 60 (>60) 11/08/20 05:50 Est GFR (MDRD) Non-Af > 60 (>60) 11/08/20 05:50 Glucose 173 mg/dL (65-99) H 11/08/20 05:50 POC Glucose (mg/dL) 193 mg/dL (65-99) H 11/08/20 07:58 Calcium 8.3 mg/dL (8.5-10.1) L 11/08/20 05:50 Corrected Calcium 9.7 mg/dL (8.5-10.1) 11/06/20 05:37 Phosphorus 2.7 mg/dL (2.6-4.7) 11/06/20 05:37 Magnesium 2.2 mg/dL (1.7-2.9) 11/06/20 05:37 Total Bilirubin 0.20 mg/dL (0.2-1.0) 11/06/20 05:37 AST 11 Units/L (15-37) L 11/06/20 05:37 ALT 11 Units/L (12-78) L 11/06/20 05:37 Alkaline Phosphatase 115 Units/L (46-116) 11/06/20 05:37 Total Protein 6.4 g/dL (6.4-8.2) 11/06/20 05:37 Albumin 2.4 g/dL (3.4-5.0) L 11/06/20 05:37 Globulin 4.0 g/dL (2.5-4.5) 11/06/20 05:37 Albumin/Globulin Ratio 0.6 Ratio (1.1-2.1) L 11/06/20 05:37 Prealbumin 12.2 mg/dL (18-35.7) L 11/05/20 05:15 Triglycerides 83 mg/dL (0-150) 11/06/20 05:37 Carcinoembryonic Ag 0.6 ng/mL (0.0-3.0) 11/01/20 15:32 Specimen Type Clean catch urine 11/02/20 01:32 Urine Color Yellow (YELLOW) 11/02/20 01:32 Urine Appearance Clear (CLEAR) 11/02/20 01:32 Urine pH 7.0 (5.0 - 8.0) 11/02/20 01:32 Ur Specific [place] 1.010 (1.000-1.030) 11/02/20 01:32 Urine Protein 1+ (NEGATIVE) 11/02/20 01:32 Urine Glucose (UA) Negative (NEGATIVE) 11/02/20 01:32 Urine Ketones Negative (NEGATIVE) 11/02/20 01:32 Urine Occult Blood Negative (NEGATIVE) 11/02/20 01:32 Urine Nitrite Negative (NEGATIVE) 11/02/20 01:32 Urine Bilirubin Negative (NEGATIVE) 11/02/20 01:32 Urine Urobilinogen Normal (NORMAL) 11/02/20 01:32 Ur Leukocyte Esterase Negative (NEGATIVE) 11/02/20 01:32 Urine RBC None seen /HPF (0-3) 11/02/20 01:32 Urine WBC None seen /HPF (0-5) 11/02/20 01:32 Ur Squamous Epith Cells Negative /HPF (NEGATIVE) 11/02/20 01:32 Urine Bacteria Negative /HPF (NEGATIVE) 11/02/20 01:32 Ur Culture Indicated? No/not indicated 11/02/20 01:32 Stool Description 40g liq/mucoid brown 11/04/20 17:19 Stool Description 40g liq/mucoid brown 11/04/20 17:19 Stl Occult Blood (IFOB) Positive (NEGATIVE) A 11/04/20 17:19 Stool for White Cells Positive (NEGATIVE) A 11/04/20 17:19 Stl C. diff Tox B Gene Negative (NEGATIVE) 11/04/20 17:19 Stl C. diff 027-NAP1-BI Presumptive negative (NEGATIVE) 11/04/20 17:19 BRIDGET Screen None detected (None Detected) 11/02/20 06:02 BRIDGET Titer TNP 11/02/20 06:02 BRIDGET Pattern TNP 11/02/20 06:02 Cryptosporid parvum Ag Negative (NEGATIVE) 11/04/20 17:19 Giardia lamblia Ag Negative (NEGATIVE) 11/04/20 17:19 SARS CoV-2 RNA Rapid MANGO Negative (NEGATIVE) 11/01/20 12:59 Tissue Pathology To follow 11/06/20 09:52 - Assessment and Plan 1: s/p laparotomy . small bowel resection along with abdominal abscess . appendectomy . day 2. same post op car , PT to ambulate. full liquid today .. same TPN .
[2020-11-08] MEDS: NORCO 5/325 MG TAB PO PRN (20:35)
[2020-11-09] MEDS: FLAGYL IV PREMIX 500 MG BAG 500 MG/100 ML BAG IV SCH ×4 (02:18→20:08)
[2020-11-09] MEDS: NORCO 5/325 MG TAB PO PRN ×2 (02:18→20:13)
[2020-11-09] MEDS: MVI IV SCH ×19 (05:00→20:10)
[2020-11-09] MEDS: [UNRECOGNIZED DRUG - OTHER] IV SCH ×19 (05:00→20:10)
[2020-11-09] MEDS: CLINIMIX IV SCH ×19 (05:00→20:10)
[2020-11-09] MEDS ORDERED: D5 1/2 NS 1000 ML 1,000 ML IV ONE (05:10)
[2020-11-09] MEDS: SOLU-Medrol 40 MG VIAL IVP SCH ×3 (06:00→21:35)
[2020-11-09] MEDS: ZOSYN VIAL 3.375 GRAMS 3.375 G in NS 100 ML IV + SPIKE MINIBAG* 100 ML IV SCH ×3 (06:00→21:35)
[2020-11-09 06:49] LABS: BLOOD UREA NITROGEN 16 mg/dL (7-18); CARBON DIOXIDE 30.9 mmol/L (21-32); CHLORIDE 103 mmol/L (98-107); COR NA(FOR HYPERGLY) 139 mmol/L (136-145); CREATININE 0.53 mg/dL (0.70-1.30); SODIUM 137 mmol/L (136-145); eGFR NON BLACK RACES > 60 (>60)
[2020-11-09] MEDS ORDERED: LEXAPRO ONE (08:13)
[2020-11-09] MEDS: LOVENOX INJ 40 MG SYR SC SCH (08:33)
[2020-11-09] MEDS: LEXAPRO PO SCH (08:33)
[2020-11-09] MEDS: PROTONIX INJ 40 MG VIAL IVP SCH (08:33)
[2020-11-09] MEDS: HumuLIN R SUBCUT PRN (08:35)
[2020-11-09] MEDS: DILAUDID INJ IVP PRN (08:39)
--- NOTE | 2020-11-09 17:06 | DR.PROGNOT ---
Hospital Progress Notes - Progress Note for Day of: Progress Note Date: 11/09/20 - Chief Complaint Chief Complaint: post op day 3. less incisional pain. no nausea or vomiting . tolerating diet well . no BM yet .. .. Pathplogy showed Crohn's disease with abscesses and perforation . normal CBC . clear lung and soft abdomen with hypoactive BS . - Past Medical Family Social History Past Med/Fam/Surg Hx: No changes since H&P Allergies: Allergies No Known Drug Allergies Allergy (Verified 07/19/20 11:31) - Review Of Systems ROS: No change since H&P - Vital Signs Vital Signs: Temperature 98.2 F Pulse Rate [Left Brachial] 69 Pulse Rate 109 Respiratory Rate 20 Blood Pressure [Left Arm] 166/94 Blood Pressure [Right Arm] 118/75 Blood Pressure 148/88 O2 Sat by Pulse Oximetry 100 - Physical Exam Oriented: Normal Eyes: Normal Ear: Normal Nose: Normal Respiratory: Normal Cardiovascular: Normal : Normal GI:Palpation: Normal, Other (palpable LLQ tender mass with localized tenderness ) GI: Tenderness: Diffuse (soft , with diffuse tenderness . BS hypoactive .) Musculoskeletal: Normal Psychiatric: Depression Mood Description: Calm Speech Pattern: Clear, Appropriate - Laboratory and Diagnostics Result Diagrams: 11/04/20 05:59 11/09/20 05:38 Labs: 11/06/20 08:20 Abdomen Wound Gram Stain - Final 11/06/20 08:20 Abdomen Wound Culture - Preliminary 11/04/20 17:19 Stool Stool Culture - Final 11/04/20 17:19 Stool - Final Laboratory WBC 8.2 X10^3/uL (3.6-10.0) 11/04/20 05:59 RBC 4.12 X10^6/uL (4.7-6.0) L 11/04/20 05:59 Hgb 10.6 g/dL (13.5-18.0) L 11/04/20 05:59 Hct 31.3 % (42.0-54.0) L 11/04/20 05:59 MCV 76.1 fL (80.0-100.0) L 11/04/20 05:59 MCH 25.8 pg (27.0-34.0) L 11/04/20 05:59 MCHC 33.9 g/dL (33.0-35.0) 11/04/20 05:59 RDW 14.5 % (11.6-16.5) 11/04/20 05:59 Plt Count 342 X10^3/uL (150.0-450.0) 11/04/20 05:59 MPV 6.4 fL (7.4-11.0) L 11/04/20 05:59 Neut % (Auto) 85.7 % (42.0-75.0) H 11/04/20 05:59 Lymph % (Auto) 3.2 % (21.0-51.0) L 11/04/20 05:59 [place] % (Auto) 7.4 % (0.0-13.0) 11/04/20 05:59 Eos % (Auto) 3.1 % (0.9-2.9) H 11/04/20 05:59 Baso % (Auto) 0.6 % (0.2-1.0) 11/04/20 05:59 Neut # (Auto) 7.0 x10^3/uL (2.2-4.8) H 11/04/20 05:59 Lymph # (Auto) 0.3 X10^3/uL (1.3-2.9) L 11/04/20 05:59 [place] # (Auto) 0.6 x10^3/uL (0.3-0.8) 11/04/20 05:59 Eos # (Auto) 0.3 x10^3/uL (0.0-0.2) H 11/04/20 05:59 Baso # (Auto) 0.0 X10^3/uL (0.0-0.1) 11/04/20 05:59 Absolute Nucleated RBC 0.0 /100WBC 11/04/20 05:59 ESR 28 MM/HOUR (0-15) H 11/02/20 06:02 Sodium 137 mmol/L (136-145) 11/09/20 05:38 Corrected Sodium 139 mmol/L (136-145) 11/09/20 05:38 Potassium 4.2 mmol/L (3.5-5.1) 11/09/20 05:38 Chloride 103 mmol/L (98-107) 11/09/20 05:38 Carbon Dioxide 30.9 mmol/L (21-32) 11/09/20 05:38 BUN 16 mg/dL (7-18) 11/09/20 05:38 Creatinine 0.53 mg/dL (0.70-1.30) L 11/09/20 05:38 Est GFR (MDRD) Af Amer > 60 (>60) 11/09/20 05:38 Est GFR (MDRD) Non-Af > 60 (>60) 11/09/20 05:38 Glucose 179 mg/dL (65-99) H 11/09/20 05:38 POC Glucose (mg/dL) 172 mg/dL (65-99) H 11/09/20 15:44 Calcium 8.0 mg/dL (8.5-10.1) L 11/09/20 05:38 Corrected Calcium 9.7 mg/dL (8.5-10.1) 11/06/20 05:37 Phosphorus 2.7 mg/dL (2.6-4.7) 11/06/20 05:37 Magnesium 2.2 mg/dL (1.7-2.9) 11/06/20 05:37 Total Bilirubin 0.20 mg/dL (0.2-1.0) 11/06/20 05:37 AST 11 Units/L (15-37) L 11/06/20 05:37 ALT 11 Units/L (12-78) L 11/06/20 05:37 Alkaline Phosphatase 115 Units/L (46-116) 11/06/20 05:37 Total Protein 6.4 g/dL (6.4-8.2) 11/06/20 05:37 Albumin 2.4 g/dL (3.4-5.0) L 11/06/20 05:37 Globulin 4.0 g/dL (2.5-4.5) 11/06/20 05:37 Albumin/Globulin Ratio 0.6 Ratio (1.1-2.1) L 11/06/20 05:37 Prealbumin 12.2 mg/dL (18-35.7) L 11/05/20 05:15 Triglycerides 83 mg/dL (0-150) 11/06/20 05:37 Carcinoembryonic Ag 0.6 ng/mL (0.0-3.0) 11/01/20 15:32 Specimen Type Clean catch urine 11/02/20 01:32 Urine Color Yellow (YELLOW) 11/02/20 01:32 Urine Appearance Clear (CLEAR) 11/02/20 01:32 Urine pH 7.0 (5.0 - 8.0) 11/02/20 01:32 Ur Specific [place] 1.010 (1.000-1.030) 11/02/20 01:32 Urine Protein 1+ (NEGATIVE) 11/02/20 01:32 Urine Glucose (UA) Negative (NEGATIVE) 11/02/20 01:32 Urine Ketones Negative (NEGATIVE) 11/02/20 01:32 Urine Occult Blood Negative (NEGATIVE) 11/02/20 01:32 Urine Nitrite Negative (NEGATIVE) 11/02/20 01:32 Urine Bilirubin Negative (NEGATIVE) 11/02/20 01:32 Urine Urobilinogen Normal (NORMAL) 11/02/20 01:32 Ur Leukocyte Esterase Negative (NEGATIVE) 11/02/20 01:32 Urine RBC None seen /HPF (0-3) 11/02/20 01:32 Urine WBC None seen /HPF (0-5) 11/02/20 01:32 Ur Squamous Epith Cells Negative /HPF (NEGATIVE) 11/02/20 01:32 Urine Bacteria Negative /HPF (NEGATIVE) 11/02/20 01:32 Ur Culture Indicated? No/not indicated 11/02/20 01:32 Stool Description 40g liq/mucoid brown 11/04/20 17:19 Stool Description 40g liq/mucoid brown 11/04/20 17:19 Stl Occult Blood (IFOB) Positive (NEGATIVE) A 11/04/20 17:19 Stool for White Cells Positive (NEGATIVE) A 11/04/20 17:19 Stl C. diff Tox B Gene Negative (NEGATIVE) 11/04/20 17:19 Stl C. diff 027-NAP1-BI Presumptive negative (NEGATIVE) 11/04/20 17:19 BRIDGET Screen None detected (None Detected) 11/02/20 06:02 BRIDGET Titer TNP 11/02/20 06:02 BRIDGET Pattern TNP 11/02/20 06:02 Cryptosporid parvum Ag Negative (NEGATIVE) 11/04/20 17:19 Giardia lamblia Ag Negative (NEGATIVE) 11/04/20 17:19 SARS CoV-2 RNA Rapid MANGO Negative (NEGATIVE) 11/01/20 12:59 Tissue Pathology To follow 11/06/20 09:52 - Assessment and Plan 1: Crohn's disease with abscesses and perforation , stricture formation . s/p laparotomy . small bowel resection along with abdominal abscess . appendectomy . day 3. same post op car , PT to ambulate. soft diet .. same TPN .
[2020-11-10] MEDS: FLAGYL IV PREMIX 500 MG BAG 500 MG/100 ML BAG IV SCH ×3 (02:13→14:17)
[2020-11-10] MEDS: SOLU-Medrol 40 MG VIAL IVP SCH ×3 (05:43→21:34)
[2020-11-10] MEDS: MVI IV SCH ×15 (05:43→11:25)
[2020-11-10] MEDS: [UNRECOGNIZED DRUG - OTHER] IV SCH ×15 (05:43→11:25)
[2020-11-10] MEDS: CLINIMIX IV SCH ×15 (05:43→11:25)
[2020-11-10] MEDS: ZOSYN VIAL 3.375 GRAMS 3.375 G in NS 100 ML IV + SPIKE MINIBAG* 100 ML IV SCH ×2 (05:43→13:00)
[2020-11-10 06:23] LABS: BLOOD UREA NITROGEN 17 mg/dL (7-18); CALCIUM 8.6 mg/dL (8.5-10.1); CARBON DIOXIDE 31.9 mmol/L (21-32); CHLORIDE 103 mmol/L (98-107); COR NA(FOR HYPERGLY) 139 mmol/L (136-145); CREATININE 0.62 mg/dL (0.70-1.30); SODIUM 137 mmol/L (136-145); eGFR NON BLACK RACES > 60 (>60)
[2020-11-10 06:32] LABS: PREALBUMIN 47.8 mg/dL (18-35.7)
[2020-11-10] MEDS ORDERED: LEXAPRO ONE (08:08)
[2020-11-10] MEDS: LEXAPRO PO SCH (08:27)
[2020-11-10] MEDS: LOVENOX INJ 40 MG SYR SC SCH (08:28)
[2020-11-10] MEDS: PROTONIX INJ 40 MG VIAL IVP SCH (08:29)
[2020-11-10] MEDS: NORCO 5/325 MG TAB PO PRN ×2 (08:37→13:00)
[2020-11-10] MEDS: TOPROL XL PO SCH (11:02)
--- NOTE | 2020-11-10 12:30 | DR.PROGNOT ---
Hospital Progress Notes - Progress Note for Day of: Progress Note Date: 11/10/20 - Chief Complaint Chief Complaint: post op day 4. less incisional pain. no nausea or vomiting . tolerating diet well . no BM yet .. .. Pathplogy showed Crohn's disease with abscesses and perforation . normal CBC . clear lung and soft abdomen with hypoactive BS . to reduse TPN . - Past Medical Family Social History Past Med/Fam/Surg Hx: No changes since H&P Allergies: Allergies No Known Drug Allergies Allergy (Verified 07/19/20 11:31) - Review Of Systems ROS: No change since H&P - Vital Signs Vital Signs: Temperature 98.2 F Pulse Rate [Left Brachial] 82 Pulse Rate 109 Respiratory Rate 17 Blood Pressure [Left Arm] 137/87 Blood Pressure [Right Arm] 188/75 Blood Pressure 148/88 O2 Sat by Pulse Oximetry 100 - Physical Exam Oriented: Normal Eyes: Normal Ear: Normal Nose: Normal Respiratory: Normal Cardiovascular: Normal : Normal GI:Palpation: Normal, Other (palpable LLQ tender mass with localized tenderness ) GI: Tenderness: Diffuse (soft , with diffuse tenderness . BS + .clean incision .) Musculoskeletal: Normal Psychiatric: Depression Mood Description: Calm Speech Pattern: Clear, Appropriate - Laboratory and Diagnostics Result Diagrams: 11/04/20 05:59 11/10/20 05:45 Labs: 11/06/20 08:20 Abdomen Wound Gram Stain - Final 11/06/20 08:20 Abdomen Wound Culture - Final Escherichia Coli 11/04/20 17:19 Stool Stool Culture - Final 11/04/20 17:19 Stool - Final Laboratory WBC 8.2 X10^3/uL (3.6-10.0) 11/04/20 05:59 RBC 4.12 X10^6/uL (4.7-6.0) L 11/04/20 05:59 Hgb 10.6 g/dL (13.5-18.0) L 11/04/20 05:59 Hct 31.3 % (42.0-54.0) L 11/04/20 05:59 MCV 76.1 fL (80.0-100.0) L 11/04/20 05:59 MCH 25.8 pg (27.0-34.0) L 11/04/20 05:59 MCHC 33.9 g/dL (33.0-35.0) 11/04/20 05:59 RDW 14.5 % (11.6-16.5) 11/04/20 05:59 Plt Count 342 X10^3/uL (150.0-450.0) 11/04/20 05:59 MPV 6.4 fL (7.4-11.0) L 11/04/20 05:59 Neut % (Auto) 85.7 % (42.0-75.0) H 11/04/20 05:59 Lymph % (Auto) 3.2 % (21.0-51.0) L 11/04/20 05:59 [place] % (Auto) 7.4 % (0.0-13.0) 11/04/20 05:59 Eos % (Auto) 3.1 % (0.9-2.9) H 11/04/20 05:59 Baso % (Auto) 0.6 % (0.2-1.0) 11/04/20 05:59 Neut # (Auto) 7.0 x10^3/uL (2.2-4.8) H 11/04/20 05:59 Lymph # (Auto) 0.3 X10^3/uL (1.3-2.9) L 11/04/20 05:59 [place] # (Auto) 0.6 x10^3/uL (0.3-0.8) 11/04/20 05:59 Eos # (Auto) 0.3 x10^3/uL (0.0-0.2) H 11/04/20 05:59 Baso # (Auto) 0.0 X10^3/uL (0.0-0.1) 11/04/20 05:59 Absolute Nucleated RBC 0.0 /100WBC 11/04/20 05:59 ESR 28 MM/HOUR (0-15) H 11/02/20 06:02 Sodium 137 mmol/L (136-145) 11/10/20 05:45 Corrected Sodium 139 mmol/L (136-145) 11/10/20 05:45 Potassium 4.2 mmol/L (3.5-5.1) 11/10/20 05:45 Chloride 103 mmol/L (98-107) 11/10/20 05:45 Carbon Dioxide 31.9 mmol/L (21-32) 11/10/20 05:45 BUN 17 mg/dL (7-18) 11/10/20 05:45 Creatinine 0.62 mg/dL (0.70-1.30) L 11/10/20 05:45 Est GFR (MDRD) Af Amer > 60 (>60) 11/10/20 05:45 Est GFR (MDRD) Non-Af > 60 (>60) 11/10/20 05:45 Glucose 188 mg/dL (65-99) H 11/10/20 05:45 POC Glucose (mg/dL) 193 mg/dL (65-99) H 11/10/20 07:16 Calcium 8.6 mg/dL (8.5-10.1) 11/10/20 05:45 Corrected Calcium 9.7 mg/dL (8.5-10.1) 11/06/20 05:37 Phosphorus 2.7 mg/dL (2.6-4.7) 11/06/20 05:37 Magnesium 2.2 mg/dL (1.7-2.9) 11/06/20 05:37 Total Bilirubin 0.20 mg/dL (0.2-1.0) 11/06/20 05:37 AST 11 Units/L (15-37) L 11/06/20 05:37 ALT 11 Units/L (12-78) L 11/06/20 05:37 Alkaline Phosphatase 115 Units/L (46-116) 11/06/20 05:37 Total Protein 6.4 g/dL (6.4-8.2) 11/06/20 05:37 Albumin 2.4 g/dL (3.4-5.0) L 11/06/20 05:37 Globulin 4.0 g/dL (2.5-4.5) 11/06/20 05:37 Albumin/Globulin Ratio 0.6 Ratio (1.1-2.1) L 11/06/20 05:37 Prealbumin 47.8 mg/dL (18-35.7) H 11/10/20 05:45 Triglycerides 83 mg/dL (0-150) 11/06/20 05:37 Carcinoembryonic Ag 0.6 ng/mL (0.0-3.0) 11/01/20 15:32 Specimen Type Clean catch urine 11/02/20 01:32 Urine Color Yellow (YELLOW) 11/02/20 01:32 Urine Appearance Clear (CLEAR) 11/02/20 01:32 Urine pH 7.0 (5.0 - 8.0) 11/02/20 01:32 Ur Specific [place] 1.010 (1.000-1.030) 11/02/20 01:32 Urine Protein 1+ (NEGATIVE) 11/02/20 01:32 Urine Glucose (UA) Negative (NEGATIVE) 11/02/20 01:32 Urine Ketones Negative (NEGATIVE) 11/02/20 01:32 Urine Occult Blood Negative (NEGATIVE) 11/02/20 01:32 Urine Nitrite Negative (NEGATIVE) 11/02/20 01:32 Urine Bilirubin Negative (NEGATIVE) 11/02/20 01:32 Urine Urobilinogen Normal (NORMAL) 11/02/20 01:32 Ur Leukocyte Esterase Negative (NEGATIVE) 11/02/20 01:32 Urine RBC None seen /HPF (0-3) 11/02/20 01:32 Urine WBC None seen /HPF (0-5) 11/02/20 01:32 Ur Squamous Epith Cells Negative /HPF (NEGATIVE) 11/02/20 01:32 Urine Bacteria Negative /HPF (NEGATIVE) 11/02/20 01:32 Ur Culture Indicated? No/not indicated 11/02/20 01:32 Stool Description 40g liq/mucoid brown 11/04/20 17:19 Stool Description 40g liq/mucoid brown 11/04/20 17:19 Stl Occult Blood (IFOB) Positive (NEGATIVE) A 11/04/20 17:19 Stool for White Cells Positive (NEGATIVE) A 11/04/20 17:19 Stl C. diff Tox B Gene Negative (NEGATIVE) 11/04/20 17:19 Stl C. diff 027-NAP1-BI Presumptive negative (NEGATIVE) 11/04/20 17:19 BRIDGET Screen None detected (None Detected) 11/02/20 06:02 BRIDGET Titer TNP 11/02/20 06:02 BRIDGET Pattern TNP 11/02/20 06:02 Cryptosporid parvum Ag Negative (NEGATIVE) 11/04/20 17:19 Giardia lamblia Ag Negative (NEGATIVE) 11/04/20 17:19 SARS CoV-2 RNA Rapid MANGO Negative (NEGATIVE) 11/01/20 12:59 Tissue Pathology To follow 11/06/20 09:52 - Assessment and Plan 1: Crohn's disease with abscesses and perforation , stricture formation . s/p laparotomy . small bowel resection along with abdominal abscess . appendectomy . day 4. same post op car , PT to ambulate. soft diet .. reduce TPN .possible discharge in am .
[2020-11-11] MEDS: SOLU-Medrol 40 MG VIAL IVP SCH (05:45)
[2020-11-11 06:16] LABS: BLOOD UREA NITROGEN 18 mg/dL (7-18); CALCIUM 8.6 mg/dL (8.5-10.1); CARBON DIOXIDE 31.6 mmol/L (21-32); CHLORIDE 103 mmol/L (98-107); COR NA(FOR HYPERGLY) 137 mmol/L (136-145); CREATININE 0.67 mg/dL (0.70-1.30); SODIUM 137 mmol/L (136-145); eGFR NON BLACK RACES > 60 (>60)
[2020-11-11] MEDS: MVI IV SCH ×5 (07:07)
[2020-11-11] MEDS: [UNRECOGNIZED DRUG - OTHER] IV SCH ×5 (07:07)
[2020-11-11] MEDS: CLINIMIX IV SCH ×5 (07:07)
[2020-11-11] MEDS ORDERED: LEXAPRO ONE (08:02)
[2020-11-11] MEDS: PROTONIX INJ 40 MG VIAL IVP SCH (08:13)
[2020-11-11] MEDS: LEXAPRO PO SCH (08:14)
[2020-11-11] MEDS: TOPROL XL PO SCH (08:14)
[2020-11-11] MEDS: LOVENOX INJ 40 MG SYR SC SCH (08:26)
[2020-11-11] MEDS ORDERED: DEXTROSE 5% 0 ML IV ONE (10:16)
[2020-11-11] MEDS ORDERED: DEXTROSE 10% 250 ML IV SCH (11:00)
[2020-11-11] MEDS ORDERED: DEXTROSE 10% 1,000 ML IV NR (11:00)
[2020-11-11 11:28] VITALS: BP 168/70
[2020-11-11] MEDS: NORCO 5/325 MG TAB PO PRN (13:21)
== END 2020-11-11 14:35 | disposition home or self-care (01) | DRG 330 ==
LOC: MED/SURG 09:37
PROVIDERS: ADMIT Surgery; ATTEND Surgery
DX: B96.29 Other Escherichia coli [E. coli] as the cause of diseases classified elsewhere; K52.89 Other specified noninfective gastroenteritis and colitis; I87.2 Venous insufficiency (chronic) (peripheral); Z20.822 Contact with and (suspected) exposure to COVID-19; F41.8 Other specified anxiety disorders; D64.89 Other specified anemias; K50.014 Crohn's disease of small intestine with abscess; K56.50 Intestinal adhesions [bands], unspecified as to partial versus complete obstruction